=== PATIENT | female | born 1970 | race African-American/Black ===

== ENCOUNTER 2021-05-31 11:21 | Inpatient (IN) | payer OTHER ==
[2021-05-31 12:00] VITALS: BMI 41.5
[2021-05-31] MEDS ORDERED: MAGNESIUM CITRATE 300 ML BOTTLE PO PRN (13:11)
[2021-05-31] MEDS ORDERED: IBUPROFEN 400 MG TABLET (FP) PO PRN (13:11)
[2021-05-31] MEDS ORDERED: BISMUTH SUBSALICYLATE 524 MG/30 ML PO PRN (13:11)
[2021-05-31] MEDS ORDERED: ONDANSETRON *ODT* 4 MG TABLET SL PRN (13:11)
[2021-05-31] MEDS ORDERED: diazePAM 5 MG TABLET PO PRN ×2 (13:11→13:59)
[2021-05-31] MEDS ORDERED: NICOTINE POLACRILEX 2 MG GUM BUC PRN (13:11)
[2021-05-31] MEDS ORDERED: ACETAMINOPHEN 325 MG TABLET (FP) PO PRN ×2 (13:11)
[2021-05-31] MEDS ORDERED: MENTHOL/PHENOL 1 EACH UD MM PRN (13:11)
[2021-05-31] MEDS ORDERED: MAG HYDROX/AL HYDROX/SIMETH 30 ML UNIT-DOSE CUP PO PRN (13:11)
[2021-05-31] MEDS ORDERED: METHOCARBAMOL 500 MG TABLET PO PRN (13:11)
[2021-05-31] MEDS ORDERED: MAGNESIUM HYDROX 2400MG/30ML ORAL SUSPENSION 30 ML CUP PO PRN (13:11)
[2021-05-31] MEDS ORDERED: BUDESONIDE/FORMETEROL FUMARATE 160/4.5 mcg INHALER IH PRN (13:20)
[2021-05-31] MEDS: hydrOXYzine PAMOATE 25 MG CAPSULE (FP) PO SCH ×3 (15:05→22:39)
[2021-05-31] MEDS: NICOTINE 14 MG/24 HOURS TOPICAL PATCH TD SCH (15:09)
[2021-05-31] MEDS: PRENATAL VITAMINS W/ FOLIC ACID TABLET (FP) PO SCH (15:09)
[2021-05-31] MEDS: OXYBUTYNIN CHLORIDE 5 MG TABLET PO SCH ×2 (15:40→22:39)
[2021-05-31] MEDS ORDERED: diazePAM 5 MG TABLET PO SCH (17:00)
[2021-05-31 17:11] LABS: ALBUMIN 3.3 g/dl (3.4-5.0); BLOOD UREA NITROGEN 22.6 mg/dL (7-18); CALCIUM 8.8 mg/dL (8.5-10.1)
[2021-05-31 17:15] LABS: CREATININE 1.3 mg/dL (0.55-1.3)
[2021-05-31 17:16] LABS: BILIRUBIN,TOTAL 0.4 mg/dL (0.2-1); TOT PROT 7.4 g/dl (6.4-8.2)
[2021-05-31 17:17] LABS: HEMATOCRIT 49.7 % (32.4-45.2); HEMOGLOBIN 15.6 GM/dL (10.7-15.3); MCH 28.3 pg (25.7-33.7); MCHC 31.5 g/dl (32.0-36.0); MEAN CELL VOLUME 89.9 fl (80-96); MEAN PLT VOLUME 7.8 fl (7.5-11.1); PLATELET COUNT 240 10^3/uL (134-434); RBC 5.53 M/mm3 (3.60-5.2); RDW 15.4 % (11.6-15.6); WHITE BLOOD COUNT 5.9 K/mm3 (4.0-10.0)
[2021-05-31] MEDS: diazePAM 5 MG TABLET PO SCH ×2 (18:01→22:39)
[2021-05-31] MEDS ORDERED: THIAMINE HCL 100 MG TABLET (FP) PO SCH (22:00)
[2021-05-31] MEDS ORDERED: MELATONIN 5 MG TABLETS PO SCH (22:00)
[2021-06-01] MEDS ORDERED: methaDONE HCL 10 MG TABLET ONE (04:20)
[2021-06-01] MEDS ORDERED: methaDONE HCL 40 MG DISPERSABLE TABLET ONE (04:20)
[2021-06-01] MEDS: diazePAM 5 MG TABLET PO SCH (06:56)
[2021-06-01] MEDS: hydrOXYzine PAMOATE 25 MG CAPSULE (FP) PO SCH (06:56)
[2021-06-01] MEDS ORDERED: hydrOXYzine PAMOATE 25 MG CAPSULE (FP) PO PRN (08:54)
[2021-06-01] MEDS ORDERED: PATIENT'S OWN MEDICATION (NON-FORMULARY) (Losartan Potassium [Cozaar] 100 MG Tablet) PO SCH (10:00)
[2021-06-01] MEDS ORDERED: LOSARTAN POTASSIUM 50 MG TABLET PO SCH (10:00)
[2021-06-01] MEDS ORDERED: methaDONE HCL 10 MG TABLET PO SCH (10:00)
[2021-06-01] MEDS: OXYBUTYNIN CHLORIDE 5 MG TABLET PO SCH (10:55)
[2021-06-01] MEDS: PRENATAL VITAMINS W/ FOLIC ACID TABLET (FP) PO SCH (10:55)
[2021-06-01] MEDS: NICOTINE 14 MG/24 HOURS TOPICAL PATCH TD SCH (11:14)
[2021-06-01 13:03] VITALS: BP 136/93; PULSE 61; TEMP 96.9
[2021-06-02] MEDS ORDERED: diazePAM 5 MG TABLET PO SCH ×2 (06:00)
[2021-06-03] MEDS ORDERED: diazePAM 5 MG TABLET PO SCH ×2 (06:00)
[2021-06-04] MEDS ORDERED: diazePAM 5 MG TABLET PO ONE ×2 (06:00)
== END 2021-06-01 14:15 | disposition other institution (70) | DRG 773 ==
LOC: YASAS 11:21 → Y3N 12:35
PROVIDERS: ADMIT Allergy & Immunology; ATTEND Allergy & Immunology
PROC: HZ2ZZZZ Detoxification Services for Substance Abuse Treatment (ICD-10-PCS; principal; 2021-05-31)
DX: F10.230 Alcohol dependence with withdrawal, uncomplicated (principal); F11.20 Opioid dependence, uncomplicated; F14.20 Cocaine dependence, uncomplicated; F12.20 Cannabis dependence, uncomplicated; F32.9 Major depressive disorder, single episode, unspecified; I10 Essential (primary) hypertension; E66.01 Morbid (severe) obesity due to excess calories; Z68.41 Body mass index [BMI] 40.0-44.9, adult; R60.0 Localized edema; R45.89 Other symptoms and signs involving emotional state; Z99.89 Dependence on other enabling machines and devices; Z86.19 Personal history of other infectious and parasitic diseases
CPT/HCPCS: 36415; 80053; 85027; 86593; 86780; 93005; 93010; C9803; U0003; U0005

== ENCOUNTER 2021-06-01 14:27 | Inpatient (IN) | payer OTHER ==
[2021-06-01] MEDS ORDERED: MENTHOL/PHENOL 1 EACH UD MM PRN (15:48)
[2021-06-01] MEDS ORDERED: LOPERAMIDE HCL 2 MG CAPSULE PO PRN (15:48)
[2021-06-01] MEDS ORDERED: MAGNESIUM CITRATE 300 ML BOTTLE PO PRN (15:48)
[2021-06-01] MEDS ORDERED: guaiFENesin 200 MG/10 ML 10 ML UNIT-DOSE CUPS PO PRN (15:48)
[2021-06-01] MEDS ORDERED: MAGNESIUM HYDROX 2400MG/30ML ORAL SUSPENSION 30 ML CUP PO PRN (15:48)
[2021-06-01] MEDS ORDERED: MAG HYDROX/AL HYDROX/SIMETH 30 ML UNIT-DOSE CUP PO PRN (15:48)
[2021-06-01] MEDS ORDERED: P-EPHED 60MG/TRIPROLIDI 2.5MG TABLET PO PRN (15:48)
[2021-06-01] MEDS ORDERED: IBUPROFEN 400 MG TABLET (FP) PO PRN (15:48)
[2021-06-01] MEDS: BUDESONIDE/FORMETEROL FUMARATE 160/4.5 mcg INHALER IH SCH (22:01)
[2021-06-01] MEDS: OXYBUTYNIN CHLORIDE 5 MG TABLET PO SCH (22:01)
[2021-06-01] MEDS: MELATONIN 5 MG TABLETS PO SCH (22:01)
[2021-06-01] MEDS: THIAMINE HCL 100 MG TABLET (FP) PO SCH (22:04)
[2021-06-02] MEDS ORDERED: methaDONE HCL 10 MG TABLET PO ONE (09:11)
[2021-06-02] MEDS ORDERED: methaDONE HCL 40 MG DISPERSABLE TABLET ONE (10:32)
[2021-06-02] MEDS ORDERED: methaDONE HCL 10 MG TABLET ONE (10:32)
[2021-06-02] MEDS: NICOTINE 7 MG/24 HOURS TOPICAL PATCH TD SCH (11:16)
[2021-06-02] MEDS: PRENATAL VITAMINS W/ FOLIC ACID TABLET (FP) PO SCH (11:16)
[2021-06-02] MEDS: OXYBUTYNIN CHLORIDE 5 MG TABLET PO SCH ×2 (11:16→21:31)
[2021-06-02] MEDS: BUDESONIDE/FORMETEROL FUMARATE 160/4.5 mcg INHALER IH SCH ×2 (11:17→21:32)
[2021-06-02] MEDS: LOSARTAN POTASSIUM 50 MG TABLET PO SCH (11:19)
[2021-06-02] MEDS ORDERED: TUBERCULIN PPD 5 TU/0.1ML VIAL ID ONE (12:22)
[2021-06-02] MEDS: THIAMINE HCL 100 MG TABLET (FP) PO SCH (21:31)
[2021-06-02] MEDS: MELATONIN 5 MG TABLETS PO SCH (21:31)
[2021-06-03] MEDS ORDERED: methaDONE HCL 10 MG TABLET ONE (05:58)
[2021-06-03] MEDS ORDERED: methaDONE HCL 40 MG DISPERSABLE TABLET ONE (05:59)
[2021-06-03] MEDS ORDERED: methaDONE HCL 10 MG TABLET PO SCH (06:00)
[2021-06-03] MEDS: NICOTINE 7 MG/24 HOURS TOPICAL PATCH TD SCH (10:39)
[2021-06-03] MEDS: BUDESONIDE/FORMETEROL FUMARATE 160/4.5 mcg INHALER IH SCH ×2 (10:39→21:38)
[2021-06-03] MEDS: OXYBUTYNIN CHLORIDE 5 MG TABLET PO SCH ×2 (10:39→21:38)
[2021-06-03] MEDS: PRENATAL VITAMINS W/ FOLIC ACID TABLET (FP) PO SCH (10:39)
[2021-06-03] MEDS: LOSARTAN POTASSIUM 50 MG TABLET PO SCH (10:39)
[2021-06-03] MEDS: NICOTINE POLACRILEX 2 MG GUM BUC PRN (10:40)
[2021-06-03] MEDS: THIAMINE HCL 100 MG TABLET (FP) PO SCH (21:38)
[2021-06-03] MEDS: MELATONIN 5 MG TABLETS PO SCH (21:39)
[2021-06-03] MEDS: hydrOXYzine PAMOATE 25 MG CAPSULE (FP) PO PRN (21:40)
[2021-06-04] MEDS ORDERED: methaDONE HCL 10 MG TABLET ONE (03:17)
[2021-06-04] MEDS ORDERED: methaDONE HCL 40 MG DISPERSABLE TABLET ONE (03:18)
[2021-06-04] MEDS: NICOTINE 7 MG/24 HOURS TOPICAL PATCH TD SCH (10:27)
[2021-06-04] MEDS: PRENATAL VITAMINS W/ FOLIC ACID TABLET (FP) PO SCH (10:27)
[2021-06-04] MEDS: LOSARTAN POTASSIUM 50 MG TABLET PO SCH (10:28)
[2021-06-04] MEDS: OXYBUTYNIN CHLORIDE 5 MG TABLET PO SCH ×2 (10:28→21:44)
[2021-06-04] MEDS: BUDESONIDE/FORMETEROL FUMARATE 160/4.5 mcg INHALER IH SCH ×2 (10:29→21:44)
[2021-06-04] MEDS ORDERED: PT OWN MED DRAWER 7, Y5N ONE (20:31)
[2021-06-04] MEDS: THIAMINE HCL 100 MG TABLET (FP) PO SCH (21:44)
[2021-06-04] MEDS: MELATONIN 5 MG TABLETS PO SCH (21:44)
[2021-06-05] MEDS ORDERED: methaDONE HCL 10 MG TABLET ONE (04:58)
[2021-06-05] MEDS ORDERED: methaDONE HCL 40 MG DISPERSABLE TABLET ONE (04:59)
[2021-06-05] MEDS: PRENATAL VITAMINS W/ FOLIC ACID TABLET (FP) PO SCH (10:21)
[2021-06-05] MEDS: NICOTINE 7 MG/24 HOURS TOPICAL PATCH TD SCH (10:22)
[2021-06-05] MEDS: BUDESONIDE/FORMETEROL FUMARATE 160/4.5 mcg INHALER IH SCH ×2 (10:22→21:41)
[2021-06-05] MEDS: LOSARTAN POTASSIUM 50 MG TABLET PO SCH (10:22)
[2021-06-05] MEDS: OXYBUTYNIN CHLORIDE 5 MG TABLET PO SCH ×2 (10:23→21:41)
[2021-06-05] MEDS ORDERED: PT OWN MED DRAWER 7, Y5N ONE (20:00)
[2021-06-05] MEDS: MELATONIN 5 MG TABLETS PO SCH (21:41)
[2021-06-05] MEDS: THIAMINE HCL 100 MG TABLET (FP) PO SCH (21:41)
[2021-06-06] MEDS ORDERED: methaDONE HCL 40 MG DISPERSABLE TABLET ONE (03:04)
[2021-06-06] MEDS ORDERED: methaDONE HCL 10 MG TABLET ONE (03:04)
[2021-06-06] MEDS ORDERED: PT OWN MED DRAWER 7, Y5N ONE (08:27)
[2021-06-06] MEDS: LOSARTAN POTASSIUM 50 MG TABLET PO SCH (10:48)
[2021-06-06] MEDS: OXYBUTYNIN CHLORIDE 5 MG TABLET PO SCH ×2 (10:49→21:57)
[2021-06-06] MEDS: NICOTINE 7 MG/24 HOURS TOPICAL PATCH TD SCH (10:49)
[2021-06-06] MEDS: BUDESONIDE/FORMETEROL FUMARATE 160/4.5 mcg INHALER IH SCH ×2 (10:50→21:56)
[2021-06-06] MEDS: PRENATAL VITAMINS W/ FOLIC ACID TABLET (FP) PO SCH (10:50)
[2021-06-06] MEDS: DOCUSATE SODIUM 100 MG CAPSULE (FP) PO SCH (21:55)
[2021-06-06] MEDS: MELATONIN 5 MG TABLETS PO SCH (21:55)
[2021-06-06] MEDS: THIAMINE HCL 100 MG TABLET (FP) PO SCH (21:56)
[2021-06-07] MEDS ORDERED: methaDONE HCL 40 MG DISPERSABLE TABLET ONE (04:53)
[2021-06-07] MEDS ORDERED: methaDONE HCL 10 MG TABLET ONE (04:53)
[2021-06-07] MEDS: DOCUSATE SODIUM 100 MG CAPSULE (FP) PO SCH ×3 (05:57→21:17)
[2021-06-07] MEDS: PRENATAL VITAMINS W/ FOLIC ACID TABLET (FP) PO SCH (10:25)
[2021-06-07] MEDS: LOSARTAN POTASSIUM 50 MG TABLET PO SCH (10:25)
[2021-06-07] MEDS: BUDESONIDE/FORMETEROL FUMARATE 160/4.5 mcg INHALER IH SCH ×2 (10:25→21:17)
[2021-06-07] MEDS: OXYBUTYNIN CHLORIDE 5 MG TABLET PO SCH ×2 (10:26→21:17)
[2021-06-07] MEDS: NICOTINE 7 MG/24 HOURS TOPICAL PATCH TD SCH (10:26)
[2021-06-07] MEDS: ACETAMINOPHEN 325 MG TABLET (FP) PO PRN (10:39)
[2021-06-07] MEDS: THIAMINE HCL 100 MG TABLET (FP) PO SCH (21:17)
[2021-06-07] MEDS: MELATONIN 5 MG TABLETS PO SCH (21:17)
[2021-06-08] MEDS ORDERED: methaDONE HCL 10 MG TABLET ONE (04:59)
[2021-06-08] MEDS ORDERED: methaDONE HCL 40 MG DISPERSABLE TABLET ONE (04:59)
[2021-06-08] MEDS: DOCUSATE SODIUM 100 MG CAPSULE (FP) PO SCH ×3 (06:47→21:22)
[2021-06-08] MEDS: BUDESONIDE/FORMETEROL FUMARATE 160/4.5 mcg INHALER IH SCH ×2 (09:50→21:21)
[2021-06-08] MEDS: LOSARTAN POTASSIUM 50 MG TABLET PO SCH (09:50)
[2021-06-08] MEDS: PRENATAL VITAMINS W/ FOLIC ACID TABLET (FP) PO SCH (09:50)
[2021-06-08] MEDS: NICOTINE 7 MG/24 HOURS TOPICAL PATCH TD SCH (09:51)
[2021-06-08] MEDS: OXYBUTYNIN CHLORIDE 5 MG TABLET PO SCH ×2 (09:52→21:22)
[2021-06-08] MEDS ORDERED: PT OWN MED DRAWER 7, Y5N ONE ×2 (09:52→19:18)
[2021-06-08] MEDS: THIAMINE HCL 100 MG TABLET (FP) PO SCH (21:22)
[2021-06-08] MEDS: hydrOXYzine PAMOATE 25 MG CAPSULE (FP) PO PRN (21:22)
[2021-06-08] MEDS: MELATONIN 5 MG TABLETS PO SCH (21:23)
[2021-06-08] MEDS: SIMETHICONE 80 MG TAB.CHEW (FP) PO PRN (21:23)
[2021-06-09] MEDS ORDERED: methaDONE HCL 40 MG DISPERSABLE TABLET ONE (03:27)
[2021-06-09] MEDS ORDERED: methaDONE HCL 10 MG TABLET ONE (03:27)
[2021-06-09] MEDS: DOCUSATE SODIUM 100 MG CAPSULE (FP) PO SCH ×3 (06:42→21:23)
[2021-06-09] MEDS: LOSARTAN POTASSIUM 50 MG TABLET PO SCH (10:28)
[2021-06-09] MEDS: BUDESONIDE/FORMETEROL FUMARATE 160/4.5 mcg INHALER IH SCH ×2 (10:28→21:22)
[2021-06-09] MEDS: PRENATAL VITAMINS W/ FOLIC ACID TABLET (FP) PO SCH (10:28)
[2021-06-09] MEDS: OXYBUTYNIN CHLORIDE 5 MG TABLET PO SCH ×2 (10:28→21:23)
[2021-06-09] MEDS: NICOTINE 7 MG/24 HOURS TOPICAL PATCH TD SCH (10:29)
[2021-06-09] MEDS ORDERED: PT OWN MED DRAWER 7, Y5N ONE (19:27)
[2021-06-09] MEDS: ACETAMINOPHEN 325 MG TABLET (FP) PO PRN (19:51)
[2021-06-09] MEDS: hydrOXYzine PAMOATE 25 MG CAPSULE (FP) PO PRN (21:23)
[2021-06-09] MEDS: MELATONIN 5 MG TABLETS PO SCH (21:23)
[2021-06-09] MEDS: THIAMINE HCL 100 MG TABLET (FP) PO SCH (21:23)
[2021-06-10] MEDS ORDERED: methaDONE HCL 40 MG DISPERSABLE TABLET ONE (06:33)
[2021-06-10] MEDS ORDERED: methaDONE HCL 10 MG TABLET ONE (06:33)
[2021-06-10] MEDS: DOCUSATE SODIUM 100 MG CAPSULE (FP) PO SCH ×3 (06:34→21:30)
[2021-06-10] MEDS: LOSARTAN POTASSIUM 50 MG TABLET PO SCH (10:38)
[2021-06-10] MEDS: NICOTINE 7 MG/24 HOURS TOPICAL PATCH TD SCH (10:38)
[2021-06-10] MEDS: BUDESONIDE/FORMETEROL FUMARATE 160/4.5 mcg INHALER IH SCH ×2 (10:38→21:30)
[2021-06-10] MEDS: OXYBUTYNIN CHLORIDE 5 MG TABLET PO SCH ×2 (10:38→21:30)
[2021-06-10] MEDS: PRENATAL VITAMINS W/ FOLIC ACID TABLET (FP) PO SCH (10:39)
[2021-06-10] MEDS ORDERED: PT OWN MED DRAWER 7, Y5N ONE (18:36)
[2021-06-10] MEDS: THIAMINE HCL 100 MG TABLET (FP) PO SCH (21:30)
[2021-06-10] MEDS: MELATONIN 5 MG TABLETS PO SCH (21:30)
[2021-06-11] MEDS ORDERED: methaDONE HCL 10 MG TABLET ONE (03:26)
[2021-06-11] MEDS ORDERED: methaDONE HCL 40 MG DISPERSABLE TABLET ONE (03:27)
[2021-06-11] MEDS: DOCUSATE SODIUM 100 MG CAPSULE (FP) PO SCH ×3 (06:20→21:09)
[2021-06-11] MEDS: LOSARTAN POTASSIUM 50 MG TABLET PO SCH (10:40)
[2021-06-11] MEDS: NICOTINE 7 MG/24 HOURS TOPICAL PATCH TD SCH (10:40)
[2021-06-11] MEDS: PRENATAL VITAMINS W/ FOLIC ACID TABLET (FP) PO SCH (10:40)
[2021-06-11] MEDS: BUDESONIDE/FORMETEROL FUMARATE 160/4.5 mcg INHALER IH SCH ×2 (10:40→21:08)
[2021-06-11] MEDS: SIMETHICONE 80 MG TAB.CHEW (FP) PO PRN (10:41)
[2021-06-11] MEDS: OXYBUTYNIN CHLORIDE 5 MG TABLET PO SCH ×2 (10:41→21:09)
[2021-06-11] MEDS: MELATONIN 5 MG TABLETS PO SCH (21:09)
[2021-06-11] MEDS: hydrOXYzine PAMOATE 25 MG CAPSULE (FP) PO PRN (21:09)
[2021-06-11] MEDS: THIAMINE HCL 100 MG TABLET (FP) PO SCH (21:09)
[2021-06-12] MEDS ORDERED: methaDONE HCL 40 MG DISPERSABLE TABLET ONE (02:54)
[2021-06-12] MEDS ORDERED: methaDONE HCL 10 MG TABLET ONE (02:54)
[2021-06-12] MEDS: DOCUSATE SODIUM 100 MG CAPSULE (FP) PO SCH ×3 (06:11→21:14)
[2021-06-12] MEDS ORDERED: PT OWN MED DRAWER 7, Y5N ONE ×2 (09:14→20:15)
[2021-06-12] MEDS: LOSARTAN POTASSIUM 50 MG TABLET PO SCH (10:16)
[2021-06-12] MEDS: OXYBUTYNIN CHLORIDE 5 MG TABLET PO SCH ×2 (10:16→21:14)
[2021-06-12] MEDS: PRENATAL VITAMINS W/ FOLIC ACID TABLET (FP) PO SCH (10:16)
[2021-06-12] MEDS: hydrOXYzine PAMOATE 25 MG CAPSULE (FP) PO PRN ×2 (10:16→21:14)
[2021-06-12] MEDS: BUDESONIDE/FORMETEROL FUMARATE 160/4.5 mcg INHALER IH SCH ×2 (10:16→21:14)
[2021-06-12] MEDS: NICOTINE 7 MG/24 HOURS TOPICAL PATCH TD SCH (10:18)
[2021-06-12] MEDS: THIAMINE HCL 100 MG TABLET (FP) PO SCH (21:14)
[2021-06-12] MEDS: MELATONIN 5 MG TABLETS PO SCH (21:14)
[2021-06-13] MEDS ORDERED: methaDONE HCL 10 MG TABLET ONE (03:46)
[2021-06-13] MEDS ORDERED: methaDONE HCL 40 MG DISPERSABLE TABLET ONE (03:47)
[2021-06-13] MEDS: DOCUSATE SODIUM 100 MG CAPSULE (FP) PO SCH ×3 (06:02→21:34)
[2021-06-13] MEDS: NICOTINE POLACRILEX 2 MG GUM BUC PRN (06:10)
[2021-06-13] MEDS: LOSARTAN POTASSIUM 50 MG TABLET PO SCH (10:29)
[2021-06-13] MEDS: OXYBUTYNIN CHLORIDE 5 MG TABLET PO SCH ×2 (10:30→21:34)
[2021-06-13] MEDS: NICOTINE 7 MG/24 HOURS TOPICAL PATCH TD SCH (10:30)
[2021-06-13] MEDS: BUDESONIDE/FORMETEROL FUMARATE 160/4.5 mcg INHALER IH SCH ×2 (10:30→21:35)
[2021-06-13] MEDS: PRENATAL VITAMINS W/ FOLIC ACID TABLET (FP) PO SCH (10:30)
[2021-06-13] MEDS ORDERED: COVID-19 VAC,AD26(JANSSEN)/PF 0.5 ML IM ONE (13:00)
[2021-06-13] MEDS ORDERED: PT OWN MED DRAWER 7, Y5N ONE (18:58)
[2021-06-13] MEDS: THIAMINE HCL 100 MG TABLET (FP) PO SCH (21:34)
[2021-06-13] MEDS: MELATONIN 5 MG TABLETS PO SCH (21:34)
[2021-06-14] MEDS ORDERED: methaDONE HCL 10 MG TABLET ONE (03:42)
[2021-06-14] MEDS ORDERED: methaDONE HCL 40 MG DISPERSABLE TABLET ONE (03:42)
[2021-06-14] MEDS: DOCUSATE SODIUM 100 MG CAPSULE (FP) PO SCH ×3 (06:35→21:11)
[2021-06-14] MEDS: NICOTINE POLACRILEX 2 MG GUM BUC PRN (06:37)
[2021-06-14] MEDS: LOSARTAN POTASSIUM 50 MG TABLET PO SCH (09:55)
[2021-06-14] MEDS: PRENATAL VITAMINS W/ FOLIC ACID TABLET (FP) PO SCH (09:55)
[2021-06-14] MEDS: BUDESONIDE/FORMETEROL FUMARATE 160/4.5 mcg INHALER IH SCH ×2 (09:55→21:12)
[2021-06-14] MEDS: OXYBUTYNIN CHLORIDE 5 MG TABLET PO SCH ×2 (09:55→21:11)
[2021-06-14] MEDS: NICOTINE 7 MG/24 HOURS TOPICAL PATCH TD SCH (09:55)
[2021-06-14] MEDS ORDERED: ALBUTEROL SO4 HFA INHALER IH PRN (14:38)
[2021-06-14] MEDS ORDERED: PT OWN MED DRAWER 7, Y5N ONE (18:52)
[2021-06-14] MEDS: MELATONIN 5 MG TABLETS PO SCH (21:11)
[2021-06-14] MEDS: THIAMINE HCL 100 MG TABLET (FP) PO SCH (21:11)
[2021-06-15] MEDS ORDERED: methaDONE HCL 40 MG DISPERSABLE TABLET ONE (03:31)
[2021-06-15] MEDS ORDERED: methaDONE HCL 10 MG TABLET ONE (03:31)
[2021-06-15] MEDS: DOCUSATE SODIUM 100 MG CAPSULE (FP) PO SCH (06:01)
[2021-06-15 08:53] VITALS: BP 156/109; PULSE 69; TEMP 97.1
[2021-06-15] MEDS ORDERED: BENZOCAINE 20 % GEL TUBE MM PRN (09:08)
[2021-06-15] MEDS: BUDESONIDE/FORMETEROL FUMARATE 160/4.5 mcg INHALER IH SCH (09:56)
[2021-06-15] MEDS: OXYBUTYNIN CHLORIDE 5 MG TABLET PO SCH (09:56)
[2021-06-15] MEDS: PRENATAL VITAMINS W/ FOLIC ACID TABLET (FP) PO SCH (09:56)
[2021-06-15] MEDS: NICOTINE 7 MG/24 HOURS TOPICAL PATCH TD SCH (09:57)
[2021-06-15] MEDS: LOSARTAN POTASSIUM 50 MG TABLET PO SCH (10:01)
== END 2021-06-15 13:15 | disposition home or self-care (01) | DRG 772 ==
LOC: YASAS 14:27 → Y5N 14:28
PROVIDERS: ADMIT Allergy & Immunology; ATTEND Allergy & Immunology
PROC: HZ42ZZZ Group Counseling for Substance Abuse Treatment, Cognitive-Behavioral (ICD-10-PCS; principal; 2021-06-01)
DX: F11.20 Opioid dependence, uncomplicated (principal); F10.20 Alcohol dependence, uncomplicated; F14.20 Cocaine dependence, uncomplicated; F32.9 Major depressive disorder, single episode, unspecified; F41.9 Anxiety disorder, unspecified; F43.10 Post-traumatic stress disorder, unspecified; I10 Essential (primary) hypertension; J45.909 Unspecified asthma, uncomplicated; K59.00 Constipation, unspecified; R60.0 Localized edema; R29.3 Abnormal posture; E66.01 Morbid (severe) obesity due to excess calories; Z99.89 Dependence on other enabling machines and devices
CPT/HCPCS: 0031A; 91303

== ENCOUNTER 2022-01-19 13:47 | Inpatient (IN) | payer OTHER ==
[2022-01-19] MEDS ORDERED: LOPERAMIDE HCL 2 MG CAPSULE PO PRN (17:43)
[2022-01-19] MEDS ORDERED: MAGNESIUM HYDROX 2400MG/30ML ORAL SUSPENSION 30 ML CUP PO PRN (17:43)
[2022-01-19] MEDS ORDERED: MENTHOL/PHENOL 1 EACH UD MM PRN (17:43)
[2022-01-19] MEDS ORDERED: NICOTINE 10 MG CARTRIDGE (INHALER) IH PRN (17:43)
[2022-01-19] MEDS ORDERED: ONDANSETRON *ODT* 4 MG TABLET SL PRN (17:43)
[2022-01-19] MEDS ORDERED: MAGNESIUM CITRATE 300 ML BOTTLE PO PRN (17:43)
[2022-01-19] MEDS ORDERED: MAG HYDROX/AL HYDROX/SIMETH 30 ML UNIT-DOSE CUP PO PRN (17:43)
[2022-01-19] MEDS ORDERED: IBUPROFEN 400 MG TABLET (FP) PO PRN (17:43)
[2022-01-19] MEDS ORDERED: ACETAMINOPHEN 325 MG TABLET (FP) PO PRN ×2 (17:43)
[2022-01-19] MEDS ORDERED: BISMUTH SUBSALICYLATE 524 MG/30 ML PO PRN (17:43)
[2022-01-19 18:52] VITALS: BMI 32.3
[2022-01-19] MEDS: hydrOXYzine PAMOATE 25 MG CAPSULE (FP) PO SCH ×2 (20:03→22:13)
[2022-01-19] MEDS: MELATONIN 5 MG TABLETS PO SCH (22:13)
[2022-01-19] MEDS: THIAMINE HCL 100 MG TABLET (FP) PO SCH (22:13)
[2022-01-20] MEDS: hydrOXYzine PAMOATE 25 MG CAPSULE (FP) PO SCH ×5 (06:10→23:10)
[2022-01-20] MEDS ORDERED: diazePAM 5 MG TABLET PO PRN (09:35)
[2022-01-20] MEDS ORDERED: methaDONE HCL 10 MG TABLET PO SCH (09:45)
[2022-01-20] MEDS: METHOCARBAMOL 500 MG TABLET PO PRN (10:41)
[2022-01-20] MEDS: PRENATAL VITAMINS W/ FOLIC ACID TABLET (FP) PO SCH (10:41)
[2022-01-20] MEDS ORDERED: methaDONE HCL 40 MG DISPERSABLE TABLET ONE (10:43)
[2022-01-20] MEDS ORDERED: methaDONE HCL 10 MG TABLET ONE (10:43)
[2022-01-20] MEDS: diazePAM 5 MG TABLET PO SCH ×3 (10:45→23:10)
[2022-01-20 12:52] LABS: HEMATOCRIT 50.1 % (32.4-45.2); HEMOGLOBIN 16.2 GM/dL (10.7-15.3); MCH 28.4 pg (25.7-33.7); MCHC 32.4 g/dl (32.0-36.0); MEAN CELL VOLUME 87.6 fl (80-96); PLATELET COUNT 268 10^3/uL (134-434); RBC 5.72 M/mm3 (3.60-5.2); RDW 15.7 % (11.6-15.6)
[2022-01-20 13:04] LABS: ALBUMIN 3.4 g/dl (3.4-5.0); BLOOD UREA NITROGEN 15.5 mg/dL (7-18); CALCIUM 9.6 mg/dL (8.5-10.1)
[2022-01-20 13:07] LABS: CREATININE 1.1 mg/dL (0.55-1.3)
[2022-01-20 13:09] LABS: BILIRUBIN,TOTAL 0.9 mg/dL (0.2-1); TOT PROT 7.6 g/dl (6.4-8.2)
[2022-01-20] MEDS: MELATONIN 5 MG TABLETS PO SCH (23:09)
[2022-01-20] MEDS: THIAMINE HCL 100 MG TABLET (FP) PO SCH (23:10)
[2022-01-21] MEDS ORDERED: methaDONE HCL 40 MG DISPERSABLE TABLET ONE (04:55)
[2022-01-21] MEDS ORDERED: methaDONE HCL 10 MG TABLET ONE (04:55)
[2022-01-21] MEDS: diazePAM 5 MG TABLET PO SCH ×4 (07:07→22:39)
[2022-01-21] MEDS: hydrOXYzine PAMOATE 25 MG CAPSULE (FP) PO SCH ×6 (07:07→22:39)
[2022-01-21] MEDS: PRENATAL VITAMINS W/ FOLIC ACID TABLET (FP) PO SCH (11:05)
[2022-01-21] MEDS: METHOCARBAMOL 500 MG TABLET PO PRN (11:05)
[2022-01-21] MEDS: THIAMINE HCL 100 MG TABLET (FP) PO SCH (22:39)
[2022-01-21] MEDS: MELATONIN 5 MG TABLETS PO SCH (22:39)
[2022-01-22] MEDS ORDERED: methaDONE HCL 40 MG DISPERSABLE TABLET ONE (04:52)
[2022-01-22] MEDS ORDERED: methaDONE HCL 10 MG TABLET ONE (04:52)
[2022-01-22] MEDS: hydrOXYzine PAMOATE 25 MG CAPSULE (FP) PO SCH ×5 (07:21→22:18)
[2022-01-22] MEDS: diazePAM 5 MG TABLET PO SCH ×3 (07:22→22:19)
[2022-01-22] MEDS: METHOCARBAMOL 500 MG TABLET PO PRN (09:11)
[2022-01-22] MEDS: PRENATAL VITAMINS W/ FOLIC ACID TABLET (FP) PO SCH (09:11)
[2022-01-22] MEDS: THIAMINE HCL 100 MG TABLET (FP) PO SCH (22:18)
[2022-01-22] MEDS: MELATONIN 5 MG TABLETS PO SCH (22:18)
[2022-01-23] MEDS ORDERED: methaDONE HCL 10 MG TABLET ONE (04:50)
[2022-01-23] MEDS ORDERED: methaDONE HCL 40 MG DISPERSABLE TABLET ONE (04:51)
[2022-01-23] MEDS: hydrOXYzine PAMOATE 25 MG CAPSULE (FP) PO SCH ×5 (06:57→23:09)
[2022-01-23] MEDS: diazePAM 5 MG TABLET PO SCH ×3 (06:57→18:25)
[2022-01-23] MEDS: PRENATAL VITAMINS W/ FOLIC ACID TABLET (FP) PO SCH (10:24)
[2022-01-23] MEDS: THIAMINE HCL 100 MG TABLET (FP) PO SCH (23:09)
[2022-01-23] MEDS: MELATONIN 5 MG TABLETS PO SCH (23:09)
[2022-01-24 00:08] LABS: SARS-CoV-2 NAA Not Detected (Not Detected)
[2022-01-24] MEDS ORDERED: methaDONE HCL 40 MG DISPERSABLE TABLET ONE (03:44)
[2022-01-24] MEDS ORDERED: methaDONE HCL 10 MG TABLET ONE (03:44)
[2022-01-24] MEDS ORDERED: diazePAM 5 MG TABLET PO ONE (06:00)
[2022-01-24] MEDS: hydrOXYzine PAMOATE 25 MG CAPSULE (FP) PO SCH ×2 (06:46→10:41)
[2022-01-24] MEDS: PRENATAL VITAMINS W/ FOLIC ACID TABLET (FP) PO SCH (10:41)
[2022-01-24] MEDS: METHOCARBAMOL 500 MG TABLET PO PRN (10:41)
[2022-01-24 13:01] VITALS: BP 132/77; PULSE 65; TEMP 97.1
== END 2022-01-24 13:29 | disposition other institution (70) | DRG 773 ==
LOC: YASAS 13:47 → Y6N 19:11
PROVIDERS: ADMIT Allergy & Immunology; ATTEND Allergy & Immunology
PROC: HZ2ZZZZ Detoxification Services for Substance Abuse Treatment (ICD-10-PCS; principal; 2022-01-19)
DX: F10.230 Alcohol dependence with withdrawal, uncomplicated (principal); F10.220 Alcohol dependence with intoxication, uncomplicated; F11.20 Opioid dependence, uncomplicated; I10 Essential (primary) hypertension; J45.909 Unspecified asthma, uncomplicated; M19.90 Unspecified osteoarthritis, unspecified site; M54.59 Other low back pain; G89.29 Other chronic pain; R26.2 Difficulty in walking, not elsewhere classified; Z99.89 Dependence on other enabling machines and devices; Z86.19 Personal history of other infectious and parasitic diseases; Z90.710 Acquired absence of both cervix and uterus
CPT/HCPCS: 36415; 80053; 85027; 86593; 86780; C9803; U0003; U0005

== ENCOUNTER 2022-01-24 14:41 | Inpatient (IN) | payer OTHER ==
[~2022-01-24 14:41] MED LIST: ACETAMINOPHEN 325 MG TABLET (FP) PO PRN; IBUPROFEN 400 MG TABLET (FP) PO PRN; LOPERAMIDE HCL 2 MG CAPSULE PO PRN; MAG HYDROX/AL HYDROX/SIMETH 30 ML UNIT-DOSE CUP PO PRN; MAGNESIUM CITRATE 300 ML BOTTLE PO PRN; MAGNESIUM HYDROX 2400MG/30ML ORAL SUSPENSION 30 ML CUP PO PRN; MELATONIN 5 MG TABLETS PO SCH; NICOTINE 10 MG CARTRIDGE (INHALER) IH PRN; NICOTINE POLACRILEX 2 MG GUM BUC PRN; P-EPHED 60MG/TRIPROLIDI 2.5MG TABLET PO PRN; PRENATAL VITAMINS W/ FOLIC ACID TABLET (FP) PO SCH; THIAMINE HCL 100 MG TABLET (FP) PO SCH; guaiFENesin 200 MG/10 ML 10 ML UNIT-DOSE CUPS PO PRN; hydrOXYzine PAMOATE 25 MG CAPSULE (FP) PO PRN; hydrOXYzine PAMOATE 25 MG CAPSULE (FP) PO SCH; methaDONE HCL 10 MG TABLET PO SCH
[2022-01-24] MEDS: THIAMINE HCL 100 MG TABLET (FP) PO SCH (21:43)
[2022-01-24] MEDS: MELATONIN 5 MG TABLETS PO SCH (21:43)
[2022-01-24] MEDS: hydrOXYzine PAMOATE 25 MG CAPSULE (FP) PO PRN (21:44)
[2022-01-25] MEDS ORDERED: methaDONE HCL 10 MG TABLET PO SCH (06:00)
[2022-01-25] MEDS ORDERED: methaDONE HCL 10 MG TABLET ONE (06:46)
[2022-01-25] MEDS ORDERED: methaDONE HCL 40 MG DISPERSABLE TABLET ONE (06:46)
[2022-01-25] MEDS: PRENATAL VITAMINS W/ FOLIC ACID TABLET (FP) PO SCH (10:44)
[2022-01-25 10:45] LABS: HEMATOCRIT 44.1 % (32.4-45.2); HEMOGLOBIN 14.5 GM/dL (10.7-15.3); MCH 28.7 pg (25.7-33.7); MCHC 32.7 g/dl (32.0-36.0); MEAN CELL VOLUME 87.5 fl (80-96); MEAN PLT VOLUME 7.5 fl (7.5-11.1); PLATELET COUNT 241 10^3/uL (134-434); RBC 5.04 M/mm3 (3.60-5.2); WHITE BLOOD COUNT 5.6 K/mm3 (4.0-10.0)
[2022-01-25] MEDS: THIAMINE HCL 100 MG TABLET (FP) PO SCH (21:33)
[2022-01-25] MEDS: MELATONIN 5 MG TABLETS PO SCH (21:33)
[2022-01-25] MEDS: BACITRACIN 0.9 GM PACKET TP SCH (21:34)
[2022-01-26] MEDS ORDERED: methaDONE HCL 40 MG DISPERSABLE TABLET ONE (02:50)
[2022-01-26] MEDS ORDERED: methaDONE HCL 10 MG TABLET ONE (02:50)
[2022-01-26] MEDS: PRENATAL VITAMINS W/ FOLIC ACID TABLET (FP) PO SCH (10:41)
[2022-01-26] MEDS: BACITRACIN 0.9 GM PACKET TP SCH ×2 (10:41→21:32)
[2022-01-26] MEDS: NICOTINE 10 MG CARTRIDGE (INHALER) IH PRN (20:43)
[2022-01-26] MEDS: hydrOXYzine PAMOATE 25 MG CAPSULE (FP) PO PRN (21:32)
[2022-01-26] MEDS: THIAMINE HCL 100 MG TABLET (FP) PO SCH (21:32)
[2022-01-26] MEDS: MELATONIN 5 MG TABLETS PO SCH (21:32)
[2022-01-26] MEDS: HYDROCORTISONE 1% TOPICAL CREAM 30 GM TUBE TP SCH (21:33)
[2022-01-27] MEDS ORDERED: methaDONE HCL 40 MG DISPERSABLE TABLET ONE (02:46)
[2022-01-27] MEDS ORDERED: methaDONE HCL 10 MG TABLET ONE (02:46)
[2022-01-27] MEDS: HYDROCORTISONE 1% TOPICAL CREAM 30 GM TUBE TP SCH ×2 (10:16→22:18)
[2022-01-27] MEDS: PRENATAL VITAMINS W/ FOLIC ACID TABLET (FP) PO SCH (10:16)
[2022-01-27] MEDS: BACITRACIN 0.9 GM PACKET TP SCH ×2 (10:18→22:17)
[2022-01-27] MEDS: MAG HYDROX/AL HYDROX/SIMETH 30 ML UNIT-DOSE CUP PO PRN (19:24)
[2022-01-27] MEDS: MELATONIN 5 MG TABLETS PO SCH (22:17)
[2022-01-27] MEDS: THIAMINE HCL 100 MG TABLET (FP) PO SCH (22:18)
[2022-01-28] MEDS ORDERED: methaDONE HCL 40 MG DISPERSABLE TABLET ONE (04:05)
[2022-01-28] MEDS ORDERED: methaDONE HCL 10 MG TABLET ONE (04:05)
[2022-01-28] MEDS ORDERED: methaDONE HCL 40 MG DISPERSABLE TABLET PO SCH (10:00)
[2022-01-28] MEDS: HYDROCORTISONE 1% TOPICAL CREAM 30 GM TUBE TP SCH ×2 (10:57→22:00)
[2022-01-28] MEDS: PRENATAL VITAMINS W/ FOLIC ACID TABLET (FP) PO SCH (10:57)
[2022-01-28] MEDS: methaDONE 40 MG, methaDONE 20 MG PO SCH ×2 (10:57→10:59)
[2022-01-28] MEDS: BACITRACIN 0.9 GM PACKET TP SCH ×2 (10:59→21:59)
[2022-01-28 13:07] LABS: SARS-CoV-2 NAA Not Detected (Not Detected)
[2022-01-28] MEDS: NICOTINE 10 MG CARTRIDGE (INHALER) IH PRN (14:08)
[2022-01-28] MEDS: THIAMINE HCL 100 MG TABLET (FP) PO SCH (21:59)
[2022-01-28] MEDS: hydrOXYzine PAMOATE 25 MG CAPSULE (FP) PO PRN (21:59)
[2022-01-28] MEDS: MELATONIN 5 MG TABLETS PO SCH (22:00)
[2022-01-29] MEDS ORDERED: methaDONE HCL 40 MG DISPERSABLE TABLET ONE (04:54)
[2022-01-29] MEDS ORDERED: methaDONE HCL 10 MG TABLET ONE (04:54)
[2022-01-29] MEDS: methaDONE 40 MG, methaDONE 20 MG PO SCH ×2 (08:54→10:28)
[2022-01-29] MEDS: PRENATAL VITAMINS W/ FOLIC ACID TABLET (FP) PO SCH (10:26)
[2022-01-29] MEDS: BACITRACIN 0.9 GM PACKET TP SCH ×2 (10:27→22:00)
[2022-01-29] MEDS: HYDROCORTISONE 1% TOPICAL CREAM 30 GM TUBE TP SCH ×2 (10:30→22:00)
[2022-01-29] MEDS: MELATONIN 5 MG TABLETS PO SCH (22:00)
[2022-01-29] MEDS: THIAMINE HCL 100 MG TABLET (FP) PO SCH (22:00)
[2022-01-30] MEDS: IBUPROFEN 400 MG TABLET (FP) PO PRN (06:41)
[2022-01-30] MEDS ORDERED: methaDONE HCL 40 MG DISPERSABLE TABLET ONE (09:04)
[2022-01-30] MEDS ORDERED: methaDONE HCL 10 MG TABLET ONE (09:04)
[2022-01-30] MEDS: BACITRACIN 0.9 GM PACKET TP SCH ×2 (11:04→21:56)
[2022-01-30] MEDS: methaDONE 40 MG, methaDONE 20 MG PO SCH (11:05)
[2022-01-30] MEDS: ACETAMINOPHEN 325 MG TABLET (FP) PO PRN ×2 (11:06→21:56)
[2022-01-30] MEDS: HYDROCORTISONE 1% TOPICAL CREAM 30 GM TUBE TP SCH ×2 (11:08→21:58)
[2022-01-30] MEDS: PRENATAL VITAMINS W/ FOLIC ACID TABLET (FP) PO SCH (11:09)
[2022-01-30] MEDS: MAG HYDROX/AL HYDROX/SIMETH 30 ML UNIT-DOSE CUP PO PRN (11:11)
[2022-01-30] MEDS: METHYL SALICYLATE/MENTHOL OINT 30 GM TUBE TP SCH ×2 (15:35→21:58)
[2022-01-30] MEDS: THIAMINE HCL 100 MG TABLET (FP) PO SCH (21:56)
[2022-01-30] MEDS: hydrOXYzine PAMOATE 25 MG CAPSULE (FP) PO PRN (21:57)
[2022-01-30] MEDS: NICOTINE 10 MG CARTRIDGE (INHALER) IH PRN (21:59)
[2022-01-30] MEDS: MELATONIN 5 MG TABLETS PO SCH (21:59)
[2022-01-31] MEDS ORDERED: methaDONE HCL 40 MG DISPERSABLE TABLET ONE (10:40)
[2022-01-31] MEDS ORDERED: methaDONE HCL 10 MG TABLET ONE (10:40)
[2022-01-31] MEDS: PRENATAL VITAMINS W/ FOLIC ACID TABLET (FP) PO SCH (10:43)
[2022-01-31] MEDS: BACITRACIN 0.9 GM PACKET TP SCH ×2 (10:44→21:43)
[2022-01-31] MEDS: methaDONE 40 MG, methaDONE 20 MG PO SCH (10:44)
[2022-01-31] MEDS: METHYL SALICYLATE/MENTHOL OINT 30 GM TUBE TP SCH ×2 (11:16→21:43)
[2022-01-31] MEDS: HYDROCORTISONE 1% TOPICAL CREAM 30 GM TUBE TP SCH ×2 (11:16→21:44)
[2022-01-31] MEDS: THIAMINE HCL 100 MG TABLET (FP) PO SCH (21:43)
[2022-01-31] MEDS: hydrOXYzine PAMOATE 25 MG CAPSULE (FP) PO PRN (21:43)
[2022-01-31] MEDS: MELATONIN 5 MG TABLETS PO SCH (21:44)
[2022-01-31] MEDS: IBUPROFEN 400 MG TABLET (FP) PO PRN (21:44)
[2022-02-01] MEDS ORDERED: methaDONE HCL 10 MG TABLET ONE (10:20)
[2022-02-01] MEDS ORDERED: methaDONE HCL 40 MG DISPERSABLE TABLET ONE (10:20)
[2022-02-01] MEDS: methaDONE 40 MG, methaDONE 20 MG PO SCH (11:29)
[2022-02-01] MEDS: PRENATAL VITAMINS W/ FOLIC ACID TABLET (FP) PO SCH (11:29)
[2022-02-01] MEDS: METHYL SALICYLATE/MENTHOL OINT 30 GM TUBE TP SCH ×2 (11:31→21:39)
[2022-02-01] MEDS: BACITRACIN 0.9 GM PACKET TP SCH ×2 (11:31→21:38)
[2022-02-01] MEDS: HYDROCORTISONE 1% TOPICAL CREAM 30 GM TUBE TP SCH ×2 (11:31→21:39)
[2022-02-01] MEDS: THIAMINE HCL 100 MG TABLET (FP) PO SCH (21:39)
[2022-02-01] MEDS: MELATONIN 5 MG TABLETS PO SCH (21:39)
[2022-02-02] MEDS: IBUPROFEN 400 MG TABLET (FP) PO PRN (06:30)
[2022-02-02] MEDS ORDERED: methaDONE HCL 10 MG TABLET ONE (09:14)
[2022-02-02] MEDS ORDERED: methaDONE HCL 40 MG DISPERSABLE TABLET ONE (09:15)
[2022-02-02] MEDS: BACITRACIN 0.9 GM PACKET TP SCH ×2 (10:28→21:27)
[2022-02-02] MEDS: methaDONE 40 MG, methaDONE 20 MG PO SCH (10:30)
[2022-02-02] MEDS: METHYL SALICYLATE/MENTHOL OINT 30 GM TUBE TP SCH ×2 (10:31→21:27)
[2022-02-02] MEDS: PRENATAL VITAMINS W/ FOLIC ACID TABLET (FP) PO SCH (10:31)
[2022-02-02] MEDS: HYDROCORTISONE 1% TOPICAL CREAM 30 GM TUBE TP SCH (10:31)
[2022-02-02] MEDS: NICOTINE 10 MG CARTRIDGE (INHALER) IH PRN (10:39)
[2022-02-02] MEDS: FUROSEMIDE 20 MG TABLET (FP) PO SCH (12:06)
[2022-02-02] MEDS: LOSARTAN POTASSIUM 50 MG TABLET PO SCH (12:32)
[2022-02-02] MEDS: hydrOXYzine PAMOATE 25 MG CAPSULE (FP) PO PRN (21:27)
[2022-02-02] MEDS: THIAMINE HCL 100 MG TABLET (FP) PO SCH (21:27)
[2022-02-02] MEDS: MELATONIN 5 MG TABLETS PO SCH (21:27)
[2022-02-03] MEDS: hydrOXYzine PAMOATE 25 MG CAPSULE (FP) PO PRN (06:55)
[2022-02-03] MEDS: IBUPROFEN 400 MG TABLET (FP) PO PRN (06:56)
[2022-02-03] MEDS ORDERED: methaDONE HCL 40 MG DISPERSABLE TABLET ONE (09:12)
[2022-02-03] MEDS ORDERED: methaDONE HCL 10 MG TABLET ONE (09:12)
[2022-02-03] MEDS: METHYL SALICYLATE/MENTHOL OINT 30 GM TUBE TP SCH ×2 (11:08→21:57)
[2022-02-03] MEDS: methaDONE 40 MG, methaDONE 20 MG PO SCH (11:12)
[2022-02-03] MEDS: LOSARTAN POTASSIUM 50 MG TABLET PO SCH (11:13)
[2022-02-03] MEDS: FUROSEMIDE 20 MG TABLET (FP) PO SCH (11:13)
[2022-02-03] MEDS: ACETAMINOPHEN 325 MG TABLET (FP) PO PRN (11:14)
[2022-02-03] MEDS: PRENATAL VITAMINS W/ FOLIC ACID TABLET (FP) PO SCH (11:14)
[2022-02-03] MEDS: BACITRACIN 0.9 GM PACKET TP SCH ×2 (11:16→21:57)
[2022-02-03] MEDS: THIAMINE HCL 100 MG TABLET (FP) PO SCH (21:57)
[2022-02-03] MEDS: MELATONIN 5 MG TABLETS PO SCH (21:58)
[2022-02-04] MEDS: IBUPROFEN 400 MG TABLET (FP) PO PRN (06:29)
[2022-02-04] MEDS ORDERED: methaDONE HCL 40 MG DISPERSABLE TABLET ONE (08:47)
[2022-02-04] MEDS ORDERED: methaDONE HCL 10 MG TABLET ONE (08:47)
[2022-02-04] MEDS: LOSARTAN POTASSIUM 50 MG TABLET PO SCH (10:34)
[2022-02-04] MEDS: FUROSEMIDE 20 MG TABLET (FP) PO SCH (10:34)
[2022-02-04] MEDS: BACITRACIN 0.9 GM PACKET TP SCH ×2 (10:34→22:02)
[2022-02-04] MEDS: methaDONE 40 MG, methaDONE 20 MG PO SCH (10:34)
[2022-02-04] MEDS: PRENATAL VITAMINS W/ FOLIC ACID TABLET (FP) PO SCH (10:34)
[2022-02-04] MEDS: ACETAMINOPHEN 325 MG TABLET (FP) PO PRN (10:37)
[2022-02-04] MEDS: METHYL SALICYLATE/MENTHOL OINT 30 GM TUBE TP SCH ×2 (10:40→22:02)
[2022-02-04] MEDS: MELATONIN 5 MG TABLETS PO SCH (22:02)
[2022-02-04] MEDS: THIAMINE HCL 100 MG TABLET (FP) PO SCH (22:02)
[2022-02-04] MEDS: hydrOXYzine PAMOATE 25 MG CAPSULE (FP) PO PRN (22:02)
[2022-02-05] MEDS: IBUPROFEN 400 MG TABLET (FP) PO PRN ×2 (07:03→21:55)
[2022-02-05] MEDS ORDERED: methaDONE HCL 10 MG TABLET ONE (09:06)
[2022-02-05] MEDS ORDERED: methaDONE HCL 40 MG DISPERSABLE TABLET ONE (09:07)
[2022-02-05] MEDS: FUROSEMIDE 20 MG TABLET (FP) PO SCH (11:20)
[2022-02-05] MEDS: PRENATAL VITAMINS W/ FOLIC ACID TABLET (FP) PO SCH (11:21)
[2022-02-05] MEDS: LOSARTAN POTASSIUM 50 MG TABLET PO SCH (11:21)
[2022-02-05] MEDS: METHYL SALICYLATE/MENTHOL OINT 30 GM TUBE TP SCH ×2 (11:21→22:01)
[2022-02-05] MEDS: BACITRACIN 0.9 GM PACKET TP SCH ×2 (11:21→21:55)
[2022-02-05] MEDS: methaDONE 40 MG, methaDONE 20 MG PO SCH (12:40)
[2022-02-05] MEDS: THIAMINE HCL 100 MG TABLET (FP) PO SCH (21:55)
[2022-02-05] MEDS: MELATONIN 5 MG TABLETS PO SCH (21:55)
[2022-02-05] MEDS: SIMETHICONE 80 MG TAB.CHEW (FP) PO PRN (21:56)
[2022-02-05] MEDS: NICOTINE 10 MG CARTRIDGE (INHALER) IH PRN (22:04)
[2022-02-06] MEDS ORDERED: methaDONE HCL 40 MG DISPERSABLE TABLET ONE (08:42)
[2022-02-06] MEDS ORDERED: methaDONE HCL 10 MG TABLET ONE (08:42)
[2022-02-06] MEDS: BACITRACIN 0.9 GM PACKET TP SCH ×2 (10:45→21:48)
[2022-02-06] MEDS: LOSARTAN POTASSIUM 50 MG TABLET PO SCH (10:45)
[2022-02-06] MEDS: METHYL SALICYLATE/MENTHOL OINT 30 GM TUBE TP SCH ×2 (10:46→23:47)
[2022-02-06] MEDS: PRENATAL VITAMINS W/ FOLIC ACID TABLET (FP) PO SCH (10:46)
[2022-02-06] MEDS: methaDONE 40 MG, methaDONE 20 MG PO SCH (10:46)
[2022-02-06] MEDS: FUROSEMIDE 20 MG TABLET (FP) PO SCH (10:47)
[2022-02-06] MEDS: IBUPROFEN 400 MG TABLET (FP) PO PRN ×2 (14:01→21:48)
[2022-02-06] MEDS: THIAMINE HCL 100 MG TABLET (FP) PO SCH (21:48)
[2022-02-06] MEDS: MELATONIN 5 MG TABLETS PO SCH (21:48)
[2022-02-07] MEDS: ACETAMINOPHEN 325 MG TABLET (FP) PO PRN ×2 (06:32→21:40)
[2022-02-07] MEDS ORDERED: methaDONE HCL 10 MG TABLET ONE (08:12)
[2022-02-07] MEDS ORDERED: methaDONE HCL 40 MG DISPERSABLE TABLET ONE (08:12)
[2022-02-07] MEDS: PRENATAL VITAMINS W/ FOLIC ACID TABLET (FP) PO SCH (11:04)
[2022-02-07] MEDS: methaDONE 40 MG, methaDONE 20 MG PO SCH (11:05)
[2022-02-07] MEDS: FUROSEMIDE 20 MG TABLET (FP) PO SCH (11:05)
[2022-02-07] MEDS: BACITRACIN 0.9 GM PACKET TP SCH ×2 (11:07→21:37)
[2022-02-07] MEDS: LIDOCAINE 5% TOPICAL PATCH TP SCH (11:10)
[2022-02-07] MEDS: LOSARTAN POTASSIUM 50 MG TABLET PO SCH (11:10)
[2022-02-07] MEDS: LIDOCAINE PATCH REMOVAL MC SCH (21:37)
[2022-02-07] MEDS: MELATONIN 5 MG TABLETS PO SCH (21:37)
[2022-02-07] MEDS: MAG HYDROX/AL HYDROX/SIMETH 30 ML UNIT-DOSE CUP PO PRN (21:37)
[2022-02-07] MEDS: THIAMINE HCL 100 MG TABLET (FP) PO SCH (21:37)
[2022-02-07] MEDS: METHYL SALICYLATE/MENTHOL OINT 30 GM TUBE TP SCH (21:38)
[2022-02-08] MEDS ORDERED: methaDONE HCL 10 MG TABLET ONE (09:12)
[2022-02-08] MEDS ORDERED: methaDONE HCL 40 MG DISPERSABLE TABLET ONE (09:12)
[2022-02-08] MEDS: LOSARTAN POTASSIUM 50 MG TABLET PO SCH (11:04)
[2022-02-08] MEDS: PRENATAL VITAMINS W/ FOLIC ACID TABLET (FP) PO SCH (11:04)
[2022-02-08] MEDS: BACITRACIN 0.9 GM PACKET TP SCH ×2 (11:04→21:43)
[2022-02-08] MEDS: FUROSEMIDE 20 MG TABLET (FP) PO SCH (11:04)
[2022-02-08] MEDS: LIDOCAINE 5% TOPICAL PATCH TP SCH (11:05)
[2022-02-08] MEDS: methaDONE 40 MG, methaDONE 20 MG PO SCH (11:05)
[2022-02-08] MEDS: IBUPROFEN 400 MG TABLET (FP) PO PRN (21:43)
[2022-02-08] MEDS: THIAMINE HCL 100 MG TABLET (FP) PO SCH (21:43)
[2022-02-08] MEDS: SIMETHICONE 80 MG TAB.CHEW (FP) PO PRN (21:43)
[2022-02-08] MEDS: MELATONIN 5 MG TABLETS PO SCH (21:43)
[2022-02-08] MEDS: COLLOIDAL OATMEAL 1 BAR EACH TP PRN (21:43)
[2022-02-08] MEDS: METHYL SALICYLATE/MENTHOL OINT 30 GM TUBE TP SCH (21:50)
[2022-02-08] MEDS: LIDOCAINE PATCH REMOVAL MC SCH (21:50)
[2022-02-09] MEDS ORDERED: methaDONE HCL 10 MG TABLET ONE (08:45)
[2022-02-09] MEDS ORDERED: methaDONE HCL 40 MG DISPERSABLE TABLET ONE (08:45)
[2022-02-09] MEDS ORDERED: ALBUTEROL SO4 HFA INHALER IH PRN (09:48)
[2022-02-09] MEDS: PRENATAL VITAMINS W/ FOLIC ACID TABLET (FP) PO SCH (10:30)
[2022-02-09] MEDS: methaDONE 40 MG, methaDONE 20 MG PO SCH (10:30)
[2022-02-09] MEDS: LIDOCAINE 5% TOPICAL PATCH TP SCH (10:31)
[2022-02-09] MEDS: FUROSEMIDE 20 MG TABLET (FP) PO SCH (10:31)
[2022-02-09] MEDS: LOSARTAN POTASSIUM 50 MG TABLET PO SCH (10:31)
[2022-02-09] MEDS: BACITRACIN 0.9 GM PACKET TP SCH ×2 (10:32→21:59)
[2022-02-09] MEDS: THIAMINE HCL 100 MG TABLET (FP) PO SCH (21:59)
[2022-02-09] MEDS: METHYL SALICYLATE/MENTHOL OINT 30 GM TUBE TP SCH (21:59)
[2022-02-09] MEDS: MELATONIN 5 MG TABLETS PO SCH (22:00)
[2022-02-09] MEDS: IBUPROFEN 400 MG TABLET (FP) PO PRN (22:05)
[2022-02-09] MEDS: LIDOCAINE PATCH REMOVAL MC SCH (22:31)
[2022-02-10] MEDS: IBUPROFEN 400 MG TABLET (FP) PO PRN (06:17)
[2022-02-10] MEDS ORDERED: methaDONE HCL 10 MG TABLET ONE (09:05)
[2022-02-10] MEDS ORDERED: methaDONE HCL 40 MG DISPERSABLE TABLET ONE (09:05)
[2022-02-10] MEDS: LOSARTAN POTASSIUM 50 MG TABLET PO SCH (09:08)
[2022-02-10] MEDS: BACITRACIN 0.9 GM PACKET TP SCH ×2 (09:08→22:23)
[2022-02-10] MEDS: methaDONE 40 MG, methaDONE 20 MG PO SCH (09:08)
[2022-02-10] MEDS: LIDOCAINE 5% TOPICAL PATCH TP SCH (09:08)
[2022-02-10] MEDS: PRENATAL VITAMINS W/ FOLIC ACID TABLET (FP) PO SCH (09:09)
[2022-02-10] MEDS: FUROSEMIDE 20 MG TABLET (FP) PO SCH (09:10)
[2022-02-10] MEDS: ACETAMINOPHEN 325 MG TABLET (FP) PO PRN (09:13)
[2022-02-10] MEDS: THIAMINE HCL 100 MG TABLET (FP) PO SCH (22:23)
[2022-02-10] MEDS: IBUPROFEN 600 MG TABLET (FP) PO PRN (22:23)
[2022-02-10] MEDS: LIDOCAINE PATCH REMOVAL MC SCH (22:24)
[2022-02-10] MEDS: MELATONIN 5 MG TABLETS PO SCH (22:26)
[2022-02-10] MEDS: METHYL SALICYLATE/MENTHOL OINT 30 GM TUBE TP SCH (22:26)
[2022-02-11] MEDS: DICLOFENAC SODIUM 75 MG TABLET.DR PO SCH ×3 (00:55→22:14)
[2022-02-11] MEDS: P-EPHED 60MG/TRIPROLIDI 2.5MG TABLET PO SCH ×3 (06:37→22:13)
[2022-02-11] MEDS ORDERED: methaDONE HCL 40 MG DISPERSABLE TABLET ONE (09:23)
[2022-02-11] MEDS ORDERED: methaDONE HCL 10 MG TABLET ONE (09:23)
[2022-02-11] MEDS: methaDONE 40 MG, methaDONE 20 MG PO SCH (11:32)
[2022-02-11] MEDS: LOSARTAN POTASSIUM 50 MG TABLET PO SCH (11:33)
[2022-02-11] MEDS: PRENATAL VITAMINS W/ FOLIC ACID TABLET (FP) PO SCH (11:33)
[2022-02-11] MEDS: BACITRACIN 0.9 GM PACKET TP SCH ×2 (11:34→22:13)
[2022-02-11] MEDS: FUROSEMIDE 20 MG TABLET (FP) PO SCH (11:36)
[2022-02-11] MEDS: MENTHOL/PHENOL 1 EACH UD MM PRN (11:36)
[2022-02-11] MEDS: LIDOCAINE 5% TOPICAL PATCH TP SCH (11:37)
[2022-02-11] MEDS: LIDOCAINE PATCH REMOVAL MC SCH (22:13)
[2022-02-11] MEDS: MELATONIN 5 MG TABLETS PO SCH (22:13)
[2022-02-11] MEDS: THIAMINE HCL 100 MG TABLET (FP) PO SCH (22:13)
[2022-02-11] MEDS: METHYL SALICYLATE/MENTHOL OINT 30 GM TUBE TP SCH (22:14)
[2022-02-12] MEDS: P-EPHED 60MG/TRIPROLIDI 2.5MG TABLET PO SCH ×3 (07:43→22:22)
[2022-02-12] MEDS ORDERED: methaDONE HCL 40 MG DISPERSABLE TABLET ONE (09:12)
[2022-02-12] MEDS ORDERED: methaDONE HCL 10 MG TABLET ONE (09:12)
[2022-02-12] MEDS: methaDONE 40 MG, methaDONE 20 MG PO SCH (10:48)
[2022-02-12] MEDS: BACITRACIN 0.9 GM PACKET TP SCH ×2 (10:48→22:23)
[2022-02-12] MEDS: PRENATAL VITAMINS W/ FOLIC ACID TABLET (FP) PO SCH (10:49)
[2022-02-12] MEDS: FUROSEMIDE 20 MG TABLET (FP) PO SCH (10:49)
[2022-02-12] MEDS: LOSARTAN POTASSIUM 50 MG TABLET PO SCH (10:49)
[2022-02-12] MEDS: LIDOCAINE 5% TOPICAL PATCH TP SCH (10:50)
[2022-02-12] MEDS: DICLOFENAC SODIUM 75 MG TABLET.DR PO SCH ×2 (10:51→22:24)
[2022-02-12] MEDS: LIDOCAINE PATCH REMOVAL MC SCH (22:23)
[2022-02-12] MEDS: THIAMINE HCL 100 MG TABLET (FP) PO SCH (22:23)
[2022-02-12] MEDS: MELATONIN 5 MG TABLETS PO SCH (22:23)
[2022-02-12] MEDS: METHYL SALICYLATE/MENTHOL OINT 30 GM TUBE TP SCH (22:23)
[2022-02-12] MEDS: MENTHOL/PHENOL 1 EACH UD MM PRN (22:31)
[2022-02-13] MEDS ORDERED: methaDONE HCL 40 MG DISPERSABLE TABLET ONE (09:28)
[2022-02-13] MEDS ORDERED: methaDONE HCL 10 MG TABLET ONE (09:28)
[2022-02-13] MEDS: PRENATAL VITAMINS W/ FOLIC ACID TABLET (FP) PO SCH (10:49)
[2022-02-13] MEDS: methaDONE 40 MG, methaDONE 20 MG PO SCH (10:51)
[2022-02-13] MEDS: ACETAMINOPHEN 325 MG TABLET (FP) PO PRN (10:52)
[2022-02-13] MEDS: FUROSEMIDE 20 MG TABLET (FP) PO SCH (10:54)
[2022-02-13] MEDS: LOSARTAN POTASSIUM 50 MG TABLET PO SCH (10:54)
[2022-02-13] MEDS: BACITRACIN 0.9 GM PACKET TP SCH ×2 (10:54→21:49)
[2022-02-13] MEDS: LIDOCAINE 5% TOPICAL PATCH TP SCH (10:55)
[2022-02-13] MEDS: DICLOFENAC SODIUM 75 MG TABLET.DR PO SCH (10:55)
[2022-02-13] MEDS: THIAMINE HCL 100 MG TABLET (FP) PO SCH (21:49)
[2022-02-13] MEDS: MELATONIN 5 MG TABLETS PO SCH (21:49)
[2022-02-13] MEDS: LIDOCAINE PATCH REMOVAL MC SCH (21:49)
[2022-02-13] MEDS: METHYL SALICYLATE/MENTHOL OINT 30 GM TUBE TP SCH (21:55)
[2022-02-13] MEDS: IBUPROFEN 600 MG TABLET (FP) PO PRN (22:09)
[2022-02-14] MEDS: MENTHOL/PHENOL 1 EACH UD MM PRN ×2 (06:32→10:45)
[2022-02-14] MEDS ORDERED: methaDONE HCL 10 MG TABLET ONE (08:38)
[2022-02-14] MEDS ORDERED: methaDONE HCL 40 MG DISPERSABLE TABLET ONE (08:38)
[2022-02-14] MEDS: BACITRACIN 0.9 GM PACKET TP SCH ×2 (10:40→21:38)
[2022-02-14] MEDS: PRENATAL VITAMINS W/ FOLIC ACID TABLET (FP) PO SCH (10:40)
[2022-02-14] MEDS: methaDONE 40 MG, methaDONE 20 MG PO SCH (10:41)
[2022-02-14] MEDS: FUROSEMIDE 20 MG TABLET (FP) PO SCH (10:41)
[2022-02-14] MEDS: LIDOCAINE 5% TOPICAL PATCH TP SCH (10:41)
[2022-02-14] MEDS: LOSARTAN POTASSIUM 50 MG TABLET PO SCH (10:42)
[2022-02-14] MEDS: ACETAMINOPHEN 325 MG TABLET (FP) PO PRN ×2 (10:43→21:38)
[2022-02-14] MEDS: NICOTINE 10 MG CARTRIDGE (INHALER) IH PRN (10:51)
[2022-02-14] MEDS: SIMETHICONE 80 MG TAB.CHEW (FP) PO PRN (21:38)
[2022-02-14] MEDS: THIAMINE HCL 100 MG TABLET (FP) PO SCH (21:38)
[2022-02-14] MEDS: MELATONIN 5 MG TABLETS PO SCH (21:47)
[2022-02-14] MEDS: LIDOCAINE PATCH REMOVAL MC SCH (21:47)
[2022-02-14] MEDS: METHYL SALICYLATE/MENTHOL OINT 30 GM TUBE TP SCH (21:47)
[2022-02-15] MEDS ORDERED: methaDONE HCL 10 MG TABLET ONE (09:46)
[2022-02-15] MEDS ORDERED: methaDONE HCL 40 MG DISPERSABLE TABLET ONE (09:46)
[2022-02-15] MEDS: LOSARTAN POTASSIUM 50 MG TABLET PO SCH (10:56)
[2022-02-15] MEDS: BACITRACIN 0.9 GM PACKET TP SCH ×2 (10:56→22:05)
[2022-02-15] MEDS: methaDONE 40 MG, methaDONE 20 MG PO SCH (10:56)
[2022-02-15] MEDS: LIDOCAINE 5% TOPICAL PATCH TP SCH (10:57)
[2022-02-15] MEDS: PRENATAL VITAMINS W/ FOLIC ACID TABLET (FP) PO SCH (10:58)
[2022-02-15] MEDS: FUROSEMIDE 20 MG TABLET (FP) PO SCH (10:58)
[2022-02-15] MEDS: ACETAMINOPHEN 325 MG TABLET (FP) PO PRN (10:59)
[2022-02-15] MEDS: MENTHOL/PHENOL 1 EACH UD MM PRN (11:02)
[2022-02-15] MEDS ORDERED: ALBUTEROL SO4 0.083% IH SOL 2.5 MG/3 ML VIAL.NEB. NEB PRN (12:26)
[2022-02-15] MEDS: guaiFENesin 600 MG TABLET.ER (FP) PO SCH ×2 (15:55→22:06)
[2022-02-15] MEDS: IBUPROFEN 600 MG TABLET (FP) PO PRN (22:05)
[2022-02-15] MEDS: MONTELUKAST NA 10 MG TABLET PO SCH (22:06)
[2022-02-15] MEDS: THIAMINE HCL 100 MG TABLET (FP) PO SCH (22:06)
[2022-02-15] MEDS: ATORVASTATIN CA 20 MG TABLET (FP) PO SCH (22:06)
[2022-02-15] MEDS: METHYL SALICYLATE/MENTHOL OINT 30 GM TUBE TP SCH (22:07)
[2022-02-15] MEDS: LIDOCAINE PATCH REMOVAL MC SCH (22:08)
[2022-02-15] MEDS: MELATONIN 5 MG TABLETS PO SCH (22:09)
[2022-02-16 10:04] LABS: CALCIUM 8.9 mg/dL (8.5-10.1)
[2022-02-16 10:05] LABS: ALBUMIN 2.9 g/dl (3.4-5.0)
[2022-02-16 10:08] LABS: CREATININE 0.9 mg/dL (0.55-1.3)
[2022-02-16 10:09] LABS: TOT PROT 7.4 g/dl (6.4-8.2)
[2022-02-16 10:10] LABS: BILIRUBIN,TOTAL 0.4 mg/dL (0.2-1)
[2022-02-16] MEDS: BACITRACIN 0.9 GM PACKET TP SCH ×2 (10:57→21:22)
[2022-02-16] MEDS: LOSARTAN POTASSIUM 50 MG TABLET PO SCH (11:00)
[2022-02-16] MEDS: guaiFENesin 600 MG TABLET.ER (FP) PO SCH ×2 (11:01→21:24)
[2022-02-16] MEDS: LIDOCAINE 5% TOPICAL PATCH TP SCH (11:01)
[2022-02-16] MEDS: PRENATAL VITAMINS W/ FOLIC ACID TABLET (FP) PO SCH (11:01)
[2022-02-16] MEDS: HYDROCHLOROTHIAZIDE 25 MG TABLET (FP) PO SCH (11:02)
[2022-02-16] MEDS ORDERED: methaDONE HCL 10 MG TABLET ONE (11:03)
[2022-02-16] MEDS ORDERED: methaDONE HCL 40 MG DISPERSABLE TABLET ONE (11:03)
[2022-02-16] MEDS: methaDONE 40 MG, methaDONE 20 MG PO SCH (11:05)
[2022-02-16] MEDS: FLUTICASONE PROP 0.05% 16 GM NASAL SPRAY NS SCH ×4 (11:23→21:23)
[2022-02-16] MEDS: COLLOIDAL OATMEAL 1 BAR EACH TP PRN (14:19)
[2022-02-16] MEDS: METHYL SALICYLATE/MENTHOL OINT 30 GM TUBE TP SCH (21:22)
[2022-02-16] MEDS: LIDOCAINE PATCH REMOVAL MC SCH (21:23)
[2022-02-16] MEDS: MELATONIN 5 MG TABLETS PO SCH (21:24)
[2022-02-16] MEDS: THIAMINE HCL 100 MG TABLET (FP) PO SCH (21:24)
[2022-02-16] MEDS: ATORVASTATIN CA 20 MG TABLET (FP) PO SCH (21:24)
[2022-02-16] MEDS: MONTELUKAST NA 10 MG TABLET PO SCH (21:24)
[2022-02-17] MEDS: hydrOXYzine PAMOATE 25 MG CAPSULE (FP) PO PRN (06:15)
[2022-02-17] MEDS ORDERED: methaDONE HCL 40 MG DISPERSABLE TABLET ONE (08:34)
[2022-02-17] MEDS ORDERED: methaDONE HCL 10 MG TABLET ONE (08:34)
[2022-02-17] MEDS: BACITRACIN 0.9 GM PACKET TP SCH ×2 (10:44→21:29)
[2022-02-17] MEDS: HYDROCHLOROTHIAZIDE 25 MG TABLET (FP) PO SCH (10:44)
[2022-02-17] MEDS: LIDOCAINE 5% TOPICAL PATCH TP SCH (10:44)
[2022-02-17] MEDS: LOSARTAN POTASSIUM 50 MG TABLET PO SCH (10:44)
[2022-02-17] MEDS: methaDONE 40 MG, methaDONE 20 MG PO SCH (10:45)
[2022-02-17] MEDS: PRENATAL VITAMINS W/ FOLIC ACID TABLET (FP) PO SCH (10:45)
[2022-02-17] MEDS: FLUTICASONE PROP 0.05% 16 GM NASAL SPRAY NS SCH ×2 (10:45→21:28)
[2022-02-17] MEDS: guaiFENesin 600 MG TABLET.ER (FP) PO SCH ×2 (10:45→21:28)
[2022-02-17] MEDS: SIMETHICONE 80 MG TAB.CHEW (FP) PO PRN (21:27)
[2022-02-17] MEDS: ATORVASTATIN CA 20 MG TABLET (FP) PO SCH (21:27)
[2022-02-17] MEDS: MONTELUKAST NA 10 MG TABLET PO SCH (21:28)
[2022-02-17] MEDS: LIDOCAINE PATCH REMOVAL MC SCH (21:28)
[2022-02-17] MEDS: MELATONIN 5 MG TABLETS PO SCH (21:28)
[2022-02-17] MEDS: THIAMINE HCL 100 MG TABLET (FP) PO SCH (21:28)
[2022-02-17] MEDS: METHYL SALICYLATE/MENTHOL OINT 30 GM TUBE TP SCH (21:29)
[2022-02-18] MEDS ORDERED: methaDONE HCL 40 MG DISPERSABLE TABLET ONE (09:30)
[2022-02-18] MEDS ORDERED: methaDONE HCL 10 MG TABLET ONE (09:30)
[2022-02-18] MEDS: PRENATAL VITAMINS W/ FOLIC ACID TABLET (FP) PO SCH (10:50)
[2022-02-18] MEDS: LOSARTAN POTASSIUM 50 MG TABLET PO SCH (10:50)
[2022-02-18] MEDS: LIDOCAINE 5% TOPICAL PATCH TP SCH (10:50)
[2022-02-18] MEDS: BACITRACIN 0.9 GM PACKET TP SCH ×2 (10:50→21:39)
[2022-02-18] MEDS: methaDONE 40 MG, methaDONE 20 MG PO SCH (10:51)
[2022-02-18] MEDS: guaiFENesin 600 MG TABLET.ER (FP) PO SCH ×2 (10:51→21:39)
[2022-02-18] MEDS: HYDROCHLOROTHIAZIDE 25 MG TABLET (FP) PO SCH (10:51)
[2022-02-18] MEDS: FLUTICASONE PROP 0.05% 16 GM NASAL SPRAY NS SCH ×2 (10:54→21:41)
[2022-02-18] MEDS: MENTHOL/PHENOL 1 EACH UD MM PRN (10:56)
[2022-02-18] MEDS: THIAMINE HCL 100 MG TABLET (FP) PO SCH (21:38)
[2022-02-18] MEDS: SIMETHICONE 80 MG TAB.CHEW (FP) PO PRN (21:39)
[2022-02-18] MEDS: MELATONIN 5 MG TABLETS PO SCH (21:39)
[2022-02-18] MEDS: ATORVASTATIN CA 20 MG TABLET (FP) PO SCH (21:39)
[2022-02-18] MEDS: MONTELUKAST NA 10 MG TABLET PO SCH (21:39)
[2022-02-18] MEDS: METHYL SALICYLATE/MENTHOL OINT 30 GM TUBE TP SCH (21:40)
[2022-02-18] MEDS: LIDOCAINE PATCH REMOVAL MC SCH (21:41)
[2022-02-19 07:31] VITALS: TEMP 97.7
[2022-02-19] MEDS ORDERED: methaDONE HCL 40 MG DISPERSABLE TABLET ONE (09:12)
[2022-02-19] MEDS ORDERED: methaDONE HCL 10 MG TABLET ONE (09:12)
[2022-02-19] MEDS: PRENATAL VITAMINS W/ FOLIC ACID TABLET (FP) PO SCH (10:29)
[2022-02-19] MEDS: BACITRACIN 0.9 GM PACKET TP SCH ×2 (10:29→21:54)
[2022-02-19] MEDS: LOSARTAN POTASSIUM 50 MG TABLET PO SCH (10:29)
[2022-02-19] MEDS: methaDONE 40 MG, methaDONE 20 MG PO SCH (10:29)
[2022-02-19] MEDS: HYDROCHLOROTHIAZIDE 25 MG TABLET (FP) PO SCH (10:31)
[2022-02-19] MEDS: guaiFENesin 600 MG TABLET.ER (FP) PO SCH ×2 (10:31→21:54)
[2022-02-19] MEDS: FLUTICASONE PROP 0.05% 16 GM NASAL SPRAY NS SCH ×2 (10:32→21:54)
[2022-02-19] MEDS: LIDOCAINE 5% TOPICAL PATCH TP SCH (10:33)
[2022-02-19] MEDS: NICOTINE 10 MG CARTRIDGE (INHALER) IH PRN (10:34)
[2022-02-19 11:01] VITALS: BP 118/64; PULSE 82
[2022-02-19] MEDS: METHYL SALICYLATE/MENTHOL OINT 30 GM TUBE TP SCH (21:53)
[2022-02-19] MEDS: ATORVASTATIN CA 20 MG TABLET (FP) PO SCH (21:54)
[2022-02-19] MEDS: MELATONIN 5 MG TABLETS PO SCH (21:54)
[2022-02-19] MEDS: MONTELUKAST NA 10 MG TABLET PO SCH (21:54)
[2022-02-19] MEDS: LIDOCAINE PATCH REMOVAL MC SCH (21:54)
[2022-02-19] MEDS: THIAMINE HCL 100 MG TABLET (FP) PO SCH (21:55)
[2022-02-20] MEDS: NICOTINE 10 MG CARTRIDGE (INHALER) IH PRN (06:37)
[2022-02-20] MEDS: BACITRACIN 0.9 GM PACKET TP SCH (09:30)
[2022-02-20] MEDS: SIMETHICONE 80 MG TAB.CHEW (FP) PO PRN (09:30)
[2022-02-20] MEDS: HYDROCHLOROTHIAZIDE 25 MG TABLET (FP) PO SCH (09:30)
[2022-02-20] MEDS: LOSARTAN POTASSIUM 50 MG TABLET PO SCH (09:30)
[2022-02-20] MEDS: FLUTICASONE PROP 0.05% 16 GM NASAL SPRAY NS SCH (09:30)
[2022-02-20] MEDS: guaiFENesin 600 MG TABLET.ER (FP) PO SCH (09:31)
[2022-02-20] MEDS: LIDOCAINE 5% TOPICAL PATCH TP SCH (09:31)
[2022-02-20] MEDS: PRENATAL VITAMINS W/ FOLIC ACID TABLET (FP) PO SCH (09:32)
[2022-02-20] MEDS ORDERED: methaDONE HCL 40 MG DISPERSABLE TABLET ONE (09:34)
[2022-02-20] MEDS ORDERED: methaDONE HCL 10 MG TABLET ONE (09:34)
[2022-02-20] MEDS: methaDONE 40 MG, methaDONE 20 MG PO SCH (09:34)
== END 2022-02-20 09:55 | disposition home or self-care (01) | DRG 772 ==
LOC: YASAS 14:41 → Y5N 14:42
PROVIDERS: ADMIT Allergy & Immunology; ATTEND Allergy & Immunology
PROC: HZ42ZZZ Group Counseling for Substance Abuse Treatment, Cognitive-Behavioral (ICD-10-PCS; principal; 2022-01-30)
DX: F10.20 Alcohol dependence, uncomplicated (principal); F11.20 Opioid dependence, uncomplicated; F14.20 Cocaine dependence, uncomplicated; F33.1 Major depressive disorder, recurrent, moderate; I10 Essential (primary) hypertension; J02.9 Acute pharyngitis, unspecified; E11.9 Type 2 diabetes mellitus without complications; Z79.84 Long term (current) use of oral hypoglycemic drugs; E66.9 Obesity, unspecified; Z68.35 Body mass index [BMI] 35.0-35.9, adult; N39.0 Urinary tract infection, site not specified; L84 Corns and callosities; M17.0 Bilateral primary osteoarthritis of knee; R32 Unspecified urinary incontinence; R30.0 Dysuria; R29.3 Abnormal posture; R60.0 Localized edema; W19.XXXA Unspecified fall, initial encounter; Y92.231 Patient bathroom in hospital as the place of occurrence of the external cause; Z91.81 History of falling; Z86.19 Personal history of other infectious and parasitic diseases; Z99.89 Dependence on other enabling machines and devices; Z91.14 Patient's other noncompliance with medication regimen
CPT/HCPCS: 36415; 80053; 82962; 85027; 87086; 87186; C9803-CS; U0003; U0005

== ENCOUNTER 2022-02-09 12:12 | Emergency (ER) | payer OTHER ==
[2022-02-09 12:22] VITALS: BP 134/78; PULSE 88; TEMP 97.9; BMI 34.7
[2022-02-09] MEDS ORDERED: ACETAMINOPHEN 500 MG TABLET (FP) PO ONE (13:23)
[2022-02-09] MEDS ORDERED: ACETAMINOPHEN 500 MG TABLET (FP) ONE (13:24)
== END 2022-02-09 14:20 | disposition home or self-care (01) ==
LOC: JERFT 12:12
DX: M25.562 Pain in left knee (principal)
CPT/HCPCS: 73562-TC-LT-FY; 99283-25

== ENCOUNTER 2022-03-16 14:11 | Inpatient (IN) | payer OTHER ==
[2022-03-16] MEDS ORDERED: BISMUTH SUBSALICYLATE 262 MG/15 ML BTL PO PRN (15:43)
[2022-03-16] MEDS ORDERED: MAG HYDROX/AL HYDROX/SIMETH 30 ML UNIT-DOSE CUP PO PRN (15:43)
[2022-03-16] MEDS ORDERED: NICOTINE 10 MG CARTRIDGE (INHALER) IH PRN (15:43)
[2022-03-16] MEDS ORDERED: LOPERAMIDE HCL 2 MG CAPSULE PO PRN (15:43)
[2022-03-16] MEDS ORDERED: ACETAMINOPHEN 325 MG TABLET (FP) PO PRN ×2 (15:43)
[2022-03-16] MEDS ORDERED: MAGNESIUM HYDROX 2400MG/30ML ORAL SUSPENSION 30 ML CUP PO PRN (15:43)
[2022-03-16] MEDS ORDERED: DICYCLOMINE HCL 10 MG CAPSULE PO PRN (15:43)
[2022-03-16] MEDS ORDERED: chlordiazePOXIDE HCL 25 MG CAPSULE PO PRN (15:43)
[2022-03-16] MEDS ORDERED: BENZOCAINE/MENTHOL (CHLORASEPTIC ) LOZENGE MM PRN (15:43)
[2022-03-16] MEDS ORDERED: MAGNESIUM CITRATE 300 ML BOTTLE PO PRN (15:43)
[2022-03-16] MEDS ORDERED: METHOCARBAMOL 500 MG TABLET PO PRN (15:43)
[2022-03-16] MEDS ORDERED: ONDANSETRON *ODT* 4 MG TABLET SL PRN (15:43)
[2022-03-16] MEDS ORDERED: cloNIDine HCL 0.1 MG TABLET PO STA (16:01)
[2022-03-16 16:05] VITALS: BMI 35.1
[2022-03-16] MEDS: chlordiazePOXIDE HCL 25 MG CAPSULE PO SCH ×2 (18:41→22:49)
[2022-03-16] MEDS: NICOTINE 7 MG/24 HOURS TOPICAL PATCH TD SCH (18:42)
[2022-03-16] MEDS: hydrOXYzine PAMOATE 25 MG CAPSULE (FP) PO SCH ×2 (18:42→22:48)
[2022-03-16] MEDS: metFORMIN HCL 500 MG TABLET (FP) PO SCH (18:43)
[2022-03-16] MEDS: PRENATAL VITAMINS W/ FOLIC ACID TABLET (FP) PO SCH (18:43)
[2022-03-16] MEDS ORDERED: MELATONIN 5 MG TABLETS PO SCH (22:00)
[2022-03-16] MEDS: ATORVASTATIN CA 10 MG TABLET (FP) PO SCH (22:48)
[2022-03-16] MEDS: MONTELUKAST NA 10 MG TABLET PO SCH (22:48)
[2022-03-16] MEDS: BUDESONIDE/FORMETEROL FUMARATE 160/4.5 mcg INHALER IH SCH (22:48)
[2022-03-16] MEDS: THIAMINE HCL 100 MG TABLET (FP) PO SCH (22:49)
[2022-03-17] MEDS: chlordiazePOXIDE HCL 25 MG CAPSULE PO SCH ×4 (05:57→23:24)
[2022-03-17] MEDS: hydrOXYzine PAMOATE 25 MG CAPSULE (FP) PO SCH ×3 (05:57→13:04)
[2022-03-17] MEDS: metFORMIN HCL 500 MG TABLET (FP) PO SCH ×2 (07:50→18:18)
[2022-03-17] MEDS ORDERED: methaDONE HCL 10 MG TABLET PO SCH (09:30)
[2022-03-17] MEDS: NICOTINE 7 MG/24 HOURS TOPICAL PATCH TD SCH (10:21)
[2022-03-17] MEDS: HYDROCHLOROTHIAZIDE 25 MG TABLET (FP) PO SCH (10:21)
[2022-03-17] MEDS: PRENATAL VITAMINS W/ FOLIC ACID TABLET (FP) PO SCH (10:21)
[2022-03-17] MEDS: ASPIRIN 81 MG CHEWABLE TABLETS PO SCH (10:21)
[2022-03-17] MEDS: BUDESONIDE/FORMETEROL FUMARATE 160/4.5 mcg INHALER IH SCH ×2 (10:21→23:23)
[2022-03-17] MEDS ORDERED: methaDONE HCL 40 MG DISPERSABLE TABLET ONE (10:23)
[2022-03-17] MEDS ORDERED: methaDONE HCL 10 MG TABLET ONE (10:23)
[2022-03-17] MEDS: methaDONE 40 MG, methaDONE 20 MG PO SCH (10:24)
[2022-03-17 11:05] LABS: HEMATOCRIT 43.9 % (32.4-45.2); HEMOGLOBIN 13.9 GM/dL (10.7-15.3); MCH 28.1 pg (25.7-33.7); MCHC 31.7 g/dl (32.0-36.0); MEAN CELL VOLUME 88.6 fl (80-96); MEAN PLT VOLUME 7.7 fl (7.5-11.1); PLATELET COUNT 269 10^3/uL (134-434); RBC 4.95 M/mm3 (3.60-5.2); RDW 15.7 % (11.6-15.6); WHITE BLOOD COUNT 4.9 K/mm3 (4.0-10.0)
[2022-03-17 11:36] LABS: ALBUMIN 2.8 g/dl (3.4-5.0); BLOOD UREA NITROGEN 18.2 mg/dL (7-18); CALCIUM 8.7 mg/dL (8.5-10.1)
[2022-03-17 11:41] LABS: BILIRUBIN,TOTAL 0.7 mg/dL (0.2-1)
[2022-03-17] MEDS: LOSARTAN POTASSIUM 50 MG TABLET PO SCH (13:03)
[2022-03-17] MEDS: IBUPROFEN 400 MG TABLET (FP) PO PRN (13:08)
[2022-03-17] MEDS ORDERED: ALBUTEROL SO4 0.083% IH SOL 2.5 MG/3 ML VIAL.NEB. NEB ONE (17:28)
[2022-03-17] MEDS: ALBUTEROL SO4 HFA INHALER IH PRN (17:42)
[2022-03-17] MEDS ORDERED: chlordiazePOXIDE 5 MG CAPSULE PO PRN (21:27)
[2022-03-17] MEDS: MONTELUKAST NA 10 MG TABLET PO SCH (23:23)
[2022-03-17] MEDS: ATORVASTATIN CA 10 MG TABLET (FP) PO SCH (23:23)
[2022-03-17] MEDS: THIAMINE HCL 100 MG TABLET (FP) PO SCH (23:23)
[2022-03-17] MEDS: ALBUTEROL SO4 0.083% IH SOL 2.5 MG/3 ML VIAL.NEB. NEB SCH (23:45)
[2022-03-18] MEDS ORDERED: methaDONE HCL 10 MG TABLET ONE (04:48)
[2022-03-18] MEDS ORDERED: methaDONE HCL 40 MG DISPERSABLE TABLET ONE (04:48)
[2022-03-18] MEDS ORDERED: chlordiazePOXIDE HCL 25 MG CAPSULE PO SCH (05:00)
[2022-03-18] MEDS: methaDONE 40 MG, methaDONE 20 MG PO SCH (06:20)
[2022-03-18] MEDS: chlordiazePOXIDE HCL 25 MG CAPSULE PO SCH ×2 (06:21→10:34)
[2022-03-18] MEDS: metFORMIN HCL 500 MG TABLET (FP) PO SCH ×2 (06:38→17:27)
[2022-03-18] MEDS: ALBUTEROL SO4 0.083% IH SOL 2.5 MG/3 ML VIAL.NEB. NEB SCH ×3 (06:39→17:28)
[2022-03-18] MEDS: HYDROCHLOROTHIAZIDE 25 MG TABLET (FP) PO SCH (10:33)
[2022-03-18] MEDS: ASPIRIN 81 MG CHEWABLE TABLETS PO SCH (10:34)
[2022-03-18] MEDS: LOSARTAN POTASSIUM 50 MG TABLET PO SCH (10:35)
[2022-03-18] MEDS: PRENATAL VITAMINS W/ FOLIC ACID TABLET (FP) PO SCH (10:35)
[2022-03-18] MEDS: BUDESONIDE/FORMETEROL FUMARATE 160/4.5 mcg INHALER IH SCH ×2 (10:36→22:05)
[2022-03-18] MEDS: THIAMINE HCL 100 MG TABLET (FP) PO SCH (22:05)
[2022-03-18] MEDS: MONTELUKAST NA 10 MG TABLET PO SCH (22:05)
[2022-03-18] MEDS: ATORVASTATIN CA 10 MG TABLET (FP) PO SCH (22:05)
[2022-03-19] MEDS ORDERED: chlordiazePOXIDE HCL 10 MG CAPSULE PO PRN
[2022-03-19 00:06] LABS: SARS-CoV-2 NAA Not Detected (Not Detected)
[2022-03-19] MEDS ORDERED: methaDONE HCL 40 MG DISPERSABLE TABLET ONE (04:38)
[2022-03-19] MEDS ORDERED: methaDONE HCL 10 MG TABLET ONE (04:38)
[2022-03-19] MEDS ORDERED: chlordiazePOXIDE HCL 10 MG CAPSULE PO SCH (05:00)
[2022-03-19] MEDS: methaDONE 40 MG, methaDONE 20 MG PO SCH (06:09)
[2022-03-19] MEDS: chlordiazePOXIDE HCL 10 MG CAPSULE PO SCH ×3 (06:09→18:59)
[2022-03-19] MEDS: metFORMIN HCL 500 MG TABLET (FP) PO SCH ×2 (06:11→18:59)
[2022-03-19] MEDS: PRENATAL VITAMINS W/ FOLIC ACID TABLET (FP) PO SCH (11:06)
[2022-03-19] MEDS: IBUPROFEN 400 MG TABLET (FP) PO PRN (11:06)
[2022-03-19] MEDS: HYDROCHLOROTHIAZIDE 25 MG TABLET (FP) PO SCH (11:07)
[2022-03-19] MEDS: BUDESONIDE/FORMETEROL FUMARATE 160/4.5 mcg INHALER IH SCH ×2 (11:08→22:59)
[2022-03-19] MEDS: LOSARTAN POTASSIUM 50 MG TABLET PO SCH (11:08)
[2022-03-19] MEDS: ASPIRIN 81 MG CHEWABLE TABLETS PO SCH (11:09)
[2022-03-19] MEDS ORDERED: chlordiazePOXIDE 5 MG CAPSULE PO SCH (18:26)
[2022-03-19] MEDS: ATORVASTATIN CA 10 MG TABLET (FP) PO SCH (22:58)
[2022-03-19] MEDS: MONTELUKAST NA 10 MG TABLET PO SCH (22:59)
[2022-03-19] MEDS: THIAMINE HCL 100 MG TABLET (FP) PO SCH (22:59)
[2022-03-20] MEDS ORDERED: methaDONE HCL 10 MG TABLET ONE (04:09)
[2022-03-20] MEDS ORDERED: methaDONE HCL 40 MG DISPERSABLE TABLET ONE (04:09)
[2022-03-20] MEDS ORDERED: chlordiazePOXIDE HCL 10 MG CAPSULE PO SCH (05:00)
[2022-03-20] MEDS: methaDONE 40 MG, methaDONE 20 MG PO SCH (05:53)
[2022-03-20] MEDS: chlordiazePOXIDE 5 MG CAPSULE PO SCH ×2 (05:54→19:41)
[2022-03-20] MEDS: metFORMIN HCL 500 MG TABLET (FP) PO SCH ×2 (07:12→16:40)
[2022-03-20] MEDS: PRENATAL VITAMINS W/ FOLIC ACID TABLET (FP) PO SCH (11:46)
[2022-03-20] MEDS: LOSARTAN POTASSIUM 50 MG TABLET PO SCH (11:47)
[2022-03-20] MEDS: ASPIRIN 81 MG CHEWABLE TABLETS PO SCH (11:48)
[2022-03-20] MEDS: BUDESONIDE/FORMETEROL FUMARATE 160/4.5 mcg INHALER IH SCH (11:48)
[2022-03-20] MEDS: HYDROCHLOROTHIAZIDE 25 MG TABLET (FP) PO SCH (11:48)
[2022-03-20] MEDS: ALBUTEROL SO4 HFA INHALER IH PRN (11:49)
[2022-03-20] MEDS: ATORVASTATIN CA 10 MG TABLET (FP) PO SCH (22:14)
[2022-03-21] MEDS: THIAMINE HCL 100 MG TABLET (FP) PO SCH (01:15)
[2022-03-21] MEDS: BUDESONIDE/FORMETEROL FUMARATE 160/4.5 mcg INHALER IH SCH ×2 (01:15→10:42)
[2022-03-21] MEDS: MONTELUKAST NA 10 MG TABLET PO SCH (01:15)
[2022-03-21] MEDS ORDERED: methaDONE HCL 10 MG TABLET ONE (04:20)
[2022-03-21] MEDS ORDERED: methaDONE HCL 40 MG DISPERSABLE TABLET ONE (04:20)
[2022-03-21] MEDS ORDERED: chlordiazePOXIDE HCL 10 MG CAPSULE PO ONE (05:00)
[2022-03-21] MEDS ORDERED: chlordiazePOXIDE 5 MG CAPSULE PO ONE (05:00)
[2022-03-21] MEDS: methaDONE 40 MG, methaDONE 20 MG PO SCH (06:37)
[2022-03-21] MEDS: metFORMIN HCL 500 MG TABLET (FP) PO SCH (06:38)
[2022-03-21 09:37] VITALS: BP 131/63; PULSE 70; TEMP 97.8
[2022-03-21] MEDS: LOSARTAN POTASSIUM 50 MG TABLET PO SCH (10:41)
[2022-03-21] MEDS: PRENATAL VITAMINS W/ FOLIC ACID TABLET (FP) PO SCH (10:41)
[2022-03-21] MEDS: HYDROCHLOROTHIAZIDE 25 MG TABLET (FP) PO SCH (10:41)
[2022-03-21] MEDS: ASPIRIN 81 MG CHEWABLE TABLETS PO SCH (10:41)
[2022-03-21] MEDS: ALBUTEROL SO4 HFA INHALER IH PRN (10:42)
== END 2022-03-21 12:45 | disposition other institution (70) | DRG 773 ==
LOC: YASAS 14:11 → Y6N 17:49
PROVIDERS: ADMIT Allergy & Immunology; ATTEND Allergy & Immunology
PROC: HZ2ZZZZ Detoxification Services for Substance Abuse Treatment (ICD-10-PCS; principal; 2022-03-16)
DX: F10.230 Alcohol dependence with withdrawal, uncomplicated (principal); F11.20 Opioid dependence, uncomplicated; F14.20 Cocaine dependence, uncomplicated; F17.210 Nicotine dependence, cigarettes, uncomplicated; F41.9 Anxiety disorder, unspecified; F32.A Depression, unspecified; I10 Essential (primary) hypertension; E11.9 Type 2 diabetes mellitus without complications; Z79.84 Long term (current) use of oral hypoglycemic drugs; R26.89 Other abnormalities of gait and mobility; M54.50 Low back pain, unspecified; G89.29 Other chronic pain; E66.9 Obesity, unspecified; Z68.35 Body mass index [BMI] 35.0-35.9, adult; Z99.81 Dependence on supplemental oxygen; Z86.19 Personal history of other infectious and parasitic diseases; Z99.89 Dependence on other enabling machines and devices
CPT/HCPCS: 36415; 80053; 82962; 85027; 86593; 86780; 94640; C9803-CS; J0735; U0003; U0005

== ENCOUNTER 2022-03-21 12:58 | Inpatient (IN) | payer OTHER ==
[2022-03-21] MEDS ORDERED: LOPERAMIDE HCL 2 MG CAPSULE PO PRN (14:45)
[2022-03-21] MEDS ORDERED: BENZOCAINE/MENTHOL (CHLORASEPTIC ) LOZENGE MM PRN (14:45)
[2022-03-21] MEDS ORDERED: MAGNESIUM HYDROX 2400MG/30ML ORAL SUSPENSION 30 ML CUP PO PRN (14:45)
[2022-03-21] MEDS ORDERED: hydrOXYzine PAMOATE 25 MG CAPSULE (FP) PO PRN (14:45)
[2022-03-21] MEDS ORDERED: MAG HYDROX/AL HYDROX/SIMETH 30 ML UNIT-DOSE CUP PO PRN (14:45)
[2022-03-21] MEDS ORDERED: IBUPROFEN 400 MG TABLET (FP) PO PRN (14:45)
[2022-03-21] MEDS ORDERED: ACETAMINOPHEN 325 MG TABLET (FP) PO PRN (14:45)
[2022-03-21] MEDS ORDERED: guaiFENesin 200 MG/10 ML 10 ML UNIT-DOSE CUPS PO PRN (14:45)
[2022-03-21] MEDS ORDERED: MAGNESIUM CITRATE 300 ML BOTTLE PO PRN (14:45)
[2022-03-21] MEDS ORDERED: P-EPHED 60MG/TRIPROLIDI 2.5MG TABLET PO PRN (14:45)
[2022-03-21] MEDS: metFORMIN HCL 500 MG TABLET (FP) PO SCH (16:30)
[2022-03-21] MEDS: MELATONIN 5 MG TABLETS PO SCH (21:52)
[2022-03-21] MEDS: MONTELUKAST NA 10 MG TABLET PO SCH (21:53)
[2022-03-21] MEDS: BUDESONIDE/FORMETEROL FUMARATE 160/4.5 mcg INHALER IH SCH (21:53)
[2022-03-21] MEDS: THIAMINE HCL 100 MG TABLET (FP) PO SCH (21:53)
[2022-03-22] MEDS ORDERED: methaDONE HCL 10 MG TABLET ONE (04:03)
[2022-03-22] MEDS ORDERED: methaDONE HCL 40 MG DISPERSABLE TABLET ONE (04:03)
[2022-03-22] MEDS ORDERED: methaDONE HCL 10 MG TABLET PO SCH (06:00)
[2022-03-22] MEDS ORDERED: methaDONE 40 MG, methaDONE 20 MG PO SCH (06:00)
[2022-03-22] MEDS: metFORMIN HCL 500 MG TABLET (FP) PO SCH ×2 (06:36→16:30)
[2022-03-22] MEDS: BUDESONIDE/FORMETEROL FUMARATE 160/4.5 mcg INHALER IH SCH ×2 (11:16→21:50)
[2022-03-22] MEDS: ASPIRIN 81 MG CHEWABLE TABLETS PO SCH (11:17)
[2022-03-22] MEDS: LOSARTAN POTASSIUM 50 MG TABLET PO SCH (11:17)
[2022-03-22] MEDS: HYDROCHLOROTHIAZIDE 25 MG TABLET (FP) PO SCH (11:17)
[2022-03-22] MEDS: NICOTINE 7 MG/24 HOURS TOPICAL PATCH TD SCH (11:17)
[2022-03-22] MEDS: PRENATAL VITAMINS W/ FOLIC ACID TABLET (FP) PO SCH (11:17)
[2022-03-22] MEDS: NICOTINE 10 MG CARTRIDGE (INHALER) IH PRN (11:23)
[2022-03-22] MEDS: MELATONIN 5 MG TABLETS PO SCH (21:48)
[2022-03-22] MEDS: MONTELUKAST NA 10 MG TABLET PO SCH (21:50)
[2022-03-22] MEDS: THIAMINE HCL 100 MG TABLET (FP) PO SCH (21:50)
[2022-03-23] MEDS: metFORMIN HCL 500 MG TABLET (FP) PO SCH ×2 (06:33→16:58)
[2022-03-23] MEDS ORDERED: methaDONE HCL 10 MG TABLET ONE (09:35)
[2022-03-23] MEDS ORDERED: methaDONE HCL 40 MG DISPERSABLE TABLET ONE (09:36)
[2022-03-23] MEDS ORDERED: methaDONE HCL 40 MG DISPERSABLE TABLET PO SCH (10:00)
[2022-03-23] MEDS: methaDONE 40 MG, methaDONE 10 MG PO SCH (11:06)
[2022-03-23] MEDS: LOSARTAN POTASSIUM 50 MG TABLET PO SCH (11:07)
[2022-03-23] MEDS: HYDROCHLOROTHIAZIDE 25 MG TABLET (FP) PO SCH (11:07)
[2022-03-23] MEDS: ASPIRIN 81 MG CHEWABLE TABLETS PO SCH (11:07)
[2022-03-23] MEDS: PRENATAL VITAMINS W/ FOLIC ACID TABLET (FP) PO SCH (11:07)
[2022-03-23] MEDS: NICOTINE 7 MG/24 HOURS TOPICAL PATCH TD SCH (11:07)
[2022-03-23] MEDS: BUDESONIDE/FORMETEROL FUMARATE 160/4.5 mcg INHALER IH SCH ×2 (11:08→21:43)
[2022-03-23] MEDS: MELATONIN 5 MG TABLETS PO SCH (21:43)
[2022-03-23] MEDS: MONTELUKAST NA 10 MG TABLET PO SCH (21:43)
[2022-03-23] MEDS: THIAMINE HCL 100 MG TABLET (FP) PO SCH (21:43)
[2022-03-24] MEDS: metFORMIN HCL 500 MG TABLET (FP) PO SCH ×2 (06:34→17:58)
[2022-03-24] MEDS ORDERED: methaDONE HCL 40 MG DISPERSABLE TABLET ONE (09:25)
[2022-03-24] MEDS ORDERED: methaDONE HCL 10 MG TABLET ONE (09:25)
[2022-03-24] MEDS: methaDONE 40 MG, methaDONE 10 MG PO SCH (11:08)
[2022-03-24] MEDS: ASPIRIN 81 MG CHEWABLE TABLETS PO SCH (11:09)
[2022-03-24] MEDS: LOSARTAN POTASSIUM 50 MG TABLET PO SCH (11:09)
[2022-03-24] MEDS: HYDROCHLOROTHIAZIDE 25 MG TABLET (FP) PO SCH (11:09)
[2022-03-24] MEDS: PRENATAL VITAMINS W/ FOLIC ACID TABLET (FP) PO SCH (11:10)
[2022-03-24] MEDS: BUDESONIDE/FORMETEROL FUMARATE 160/4.5 mcg INHALER IH SCH ×2 (11:11→22:07)
[2022-03-24] MEDS: NICOTINE 7 MG/24 HOURS TOPICAL PATCH TD SCH (11:12)
[2022-03-24] MEDS: NICOTINE 10 MG CARTRIDGE (INHALER) IH PRN (12:56)
[2022-03-24] MEDS: MELATONIN 5 MG TABLETS PO SCH (22:02)
[2022-03-24] MEDS: LIDOCAINE PATCH REMOVAL MC SCH (22:03)
[2022-03-24] MEDS: MONTELUKAST NA 10 MG TABLET PO SCH (22:07)
[2022-03-24] MEDS: THIAMINE HCL 100 MG TABLET (FP) PO SCH (22:07)
[2022-03-25] MEDS: metFORMIN HCL 500 MG TABLET (FP) PO SCH ×2 (06:31→16:54)
[2022-03-25] MEDS ORDERED: methaDONE HCL 10 MG TABLET ONE (09:25)
[2022-03-25] MEDS ORDERED: methaDONE HCL 40 MG DISPERSABLE TABLET ONE (09:26)
[2022-03-25] MEDS: LOSARTAN POTASSIUM 50 MG TABLET PO SCH (10:43)
[2022-03-25] MEDS: ASPIRIN 81 MG CHEWABLE TABLETS PO SCH (10:44)
[2022-03-25] MEDS: methaDONE 40 MG, methaDONE 10 MG PO SCH (10:44)
[2022-03-25] MEDS: BUDESONIDE/FORMETEROL FUMARATE 160/4.5 mcg INHALER IH SCH ×2 (10:45→22:29)
[2022-03-25] MEDS: NICOTINE 7 MG/24 HOURS TOPICAL PATCH TD SCH (10:45)
[2022-03-25] MEDS: PRENATAL VITAMINS W/ FOLIC ACID TABLET (FP) PO SCH (10:45)
[2022-03-25] MEDS: LIDOCAINE 5% TOPICAL PATCH TP SCH (10:46)
[2022-03-25] MEDS: HYDROCHLOROTHIAZIDE 25 MG TABLET (FP) PO SCH (10:47)
[2022-03-25 14:08] LABS: SARS-CoV-2 NAA Not Detected (Not Detected)
[2022-03-25] MEDS: MONTELUKAST NA 10 MG TABLET PO SCH (22:18)
[2022-03-25] MEDS: LIDOCAINE PATCH REMOVAL MC SCH (22:18)
[2022-03-25] MEDS: MELATONIN 5 MG TABLETS PO SCH (22:18)
[2022-03-25] MEDS: THIAMINE HCL 100 MG TABLET (FP) PO SCH (22:18)
[2022-03-26] MEDS: metFORMIN HCL 500 MG TABLET (FP) PO SCH ×2 (06:14→17:08)
[2022-03-26] MEDS ORDERED: methaDONE HCL 40 MG DISPERSABLE TABLET ONE (08:10)
[2022-03-26] MEDS ORDERED: methaDONE HCL 10 MG TABLET ONE (08:10)
[2022-03-26] MEDS: PRENATAL VITAMINS W/ FOLIC ACID TABLET (FP) PO SCH (11:12)
[2022-03-26] MEDS: ASPIRIN 81 MG CHEWABLE TABLETS PO SCH (11:12)
[2022-03-26] MEDS: LOSARTAN POTASSIUM 50 MG TABLET PO SCH (11:12)
[2022-03-26] MEDS: HYDROCHLOROTHIAZIDE 25 MG TABLET (FP) PO SCH (11:12)
[2022-03-26] MEDS: methaDONE 40 MG, methaDONE 10 MG PO SCH (11:12)
[2022-03-26] MEDS: BUDESONIDE/FORMETEROL FUMARATE 160/4.5 mcg INHALER IH SCH ×2 (11:13→22:46)
[2022-03-26] MEDS: LIDOCAINE 5% TOPICAL PATCH TP SCH (11:13)
[2022-03-26] MEDS: NICOTINE 7 MG/24 HOURS TOPICAL PATCH TD SCH (11:13)
[2022-03-26] MEDS: LIDOCAINE PATCH REMOVAL MC SCH (22:41)
[2022-03-26] MEDS: MELATONIN 5 MG TABLETS PO SCH (22:41)
[2022-03-26] MEDS: MONTELUKAST NA 10 MG TABLET PO SCH (22:42)
[2022-03-26] MEDS: THIAMINE HCL 100 MG TABLET (FP) PO SCH (22:42)
[2022-03-27] MEDS: metFORMIN HCL 500 MG TABLET (FP) PO SCH (06:18)
[2022-03-27 07:18] VITALS: TEMP 96.2
[2022-03-27] MEDS ORDERED: methaDONE HCL 10 MG TABLET ONE (09:06)
[2022-03-27] MEDS ORDERED: methaDONE HCL 40 MG DISPERSABLE TABLET ONE (09:06)
[2022-03-27 10:02] VITALS: BP 112/67; PULSE 75
[2022-03-27] MEDS: BUDESONIDE/FORMETEROL FUMARATE 160/4.5 mcg INHALER IH SCH (11:00)
[2022-03-27] MEDS: ASPIRIN 81 MG CHEWABLE TABLETS PO SCH (11:00)
[2022-03-27] MEDS: PRENATAL VITAMINS W/ FOLIC ACID TABLET (FP) PO SCH (11:00)
[2022-03-27] MEDS: HYDROCHLOROTHIAZIDE 25 MG TABLET (FP) PO SCH (11:00)
[2022-03-27] MEDS: LOSARTAN POTASSIUM 50 MG TABLET PO SCH (11:00)
[2022-03-27] MEDS: methaDONE 40 MG, methaDONE 10 MG PO SCH (11:01)
[2022-03-27] MEDS: NICOTINE 10 MG CARTRIDGE (INHALER) IH PRN (11:04)
[2022-03-27] MEDS: NICOTINE 7 MG/24 HOURS TOPICAL PATCH TD SCH (11:13)
[2022-03-27] MEDS: LIDOCAINE 5% TOPICAL PATCH TP SCH (11:13)
== END 2022-03-27 12:30 | disposition home or self-care (01) | DRG 772 ==
LOC: YASAS 12:58 → Y5N 12:59
PROVIDERS: ADMIT Allergy & Immunology; ATTEND Allergy & Immunology
PROC: HZ42ZZZ Group Counseling for Substance Abuse Treatment, Cognitive-Behavioral (ICD-10-PCS; principal; 2022-03-21)
DX: F10.20 Alcohol dependence, uncomplicated (principal); F11.20 Opioid dependence, uncomplicated; F14.20 Cocaine dependence, uncomplicated; F33.1 Major depressive disorder, recurrent, moderate; F41.9 Anxiety disorder, unspecified; F32.A Depression, unspecified; F43.10 Post-traumatic stress disorder, unspecified; I10 Essential (primary) hypertension; J45.909 Unspecified asthma, uncomplicated; M54.50 Low back pain, unspecified; G89.29 Other chronic pain; R60.0 Localized edema; E66.9 Obesity, unspecified; Z68.33 Body mass index [BMI] 33.0-33.9, adult; Z86.19 Personal history of other infectious and parasitic diseases; Z99.89 Dependence on other enabling machines and devices
CPT/HCPCS: 82962; C9803-CS; U0003; U0005

== ENCOUNTER 2022-08-21 16:44 | Emergency (ER) | payer OTHER ==
[2022-08-21 16:50] VITALS: TEMP 98.3; BMI 45.7
[2022-08-21] MEDS ORDERED: cloNIDine HCL 0.1 MG TABLET PO ONE (19:09)
[2022-08-21] MEDS ORDERED: ACETAMINOPHEN 500 MG TABLET (FP) PO ONE (19:09)
[2022-08-21] MEDS ORDERED: ACETAMINOPHEN 500 MG TABLET (FP) ONE (19:16)
[2022-08-21] MEDS ORDERED: cloNIDine HCL 0.1 MG TABLET ONE (19:20)
[2022-08-21] MEDS ORDERED: METHOCARBAMOL 500 MG TABLET PO ONE (19:48)
[2022-08-21] MEDS ORDERED: METHOCARBAMOL 500 MG TABLET ONE (21:12)
[2022-08-21 21:30] LABS: EOS % 2.8 % (0-4.5); HEMATOCRIT 45.6 % (32.4-45.2); HEMOGLOBIN 14.4 GM/dL (10.7-15.3); LYMPH % 42.3 % (8-40); MCHC 31.7 g/dl (32.0-36.0); MEAN CELL VOLUME 88.4 fl (80-96); MEAN PLT VOLUME 7.3 fl (7.5-11.1); MONO % 7.2 % (3.8-10.2); NEUT % 46.7 % (42.8-82.8); PLATELET COUNT 254 10^3/uL (134-434); RBC 5.15 M/mm3 (3.60-5.2); WHITE BLOOD COUNT 5.5 K/mm3 (4.0-10.0)
[2022-08-21 21:59] LABS: ALBUMIN 2.9 g/dl (3.4-5.0); CALCIUM 8.9 mg/dL (8.5-10.1)
[2022-08-21 22:04] LABS: BILIRUBIN,TOTAL 0.5 mg/dL (0.2-1); CREATININE 0.9 mg/dL (0.55-1.3)
[2022-08-21 22:14] VITALS: BP 124/83; PULSE 64; RESP 20
== END 2022-08-21 22:41 | disposition home or self-care (01) ==
LOC: JER 16:44
DX: M62.831 Muscle spasm of calf (principal); I10 Essential (primary) hypertension
CPT/HCPCS: 36415; 80053; 82962; 85025; 93971-TC; 99284-25

== ENCOUNTER 2022-08-22 01:00 | Inpatient (IN) | payer OTHER ==
[2022-08-22] MEDS ORDERED: ALBUTEROL SO4 HFA INHALER IH PRN (01:26)
[2022-08-22] MEDS ORDERED: IBUPROFEN 400 MG TABLET (FP) PO PRN (01:27)
[2022-08-22] MEDS ORDERED: MELATONIN 5 MG TABLETS PO PRN (01:27)
[2022-08-22] MEDS ORDERED: NALOXONE HCL (KLOXXADO) 8 MG SPRAY NS PRN (01:27)
[2022-08-22] MEDS ORDERED: NALOXONE HCL 0.4 MG/ML VIAL IM PRN (01:27)
[2022-08-22] MEDS ORDERED: BENZOCAINE/MENTHOL (CHLORASEPTIC ) LOZENGE MM PRN (01:27)
[2022-08-22] MEDS ORDERED: MAGNESIUM CITRATE 300 ML BOTTLE PO PRN (01:27)
[2022-08-22] MEDS ORDERED: MAGNESIUM HYDROX 2400MG/30ML ORAL SUSPENSION 30 ML CUP PO PRN (01:27)
[2022-08-22] MEDS ORDERED: DICYCLOMINE HCL 10 MG CAPSULE PO PRN (01:27)
[2022-08-22] MEDS ORDERED: guaiFENesin 200 MG/10 ML 10 ML UNIT-DOSE CUPS PO PRN (01:27)
[2022-08-22] MEDS ORDERED: ACETAMINOPHEN 325 MG TABLET (FP) PO PRN ×2 (01:27)
[2022-08-22] MEDS ORDERED: MAG HYDROX/AL HYDROX/SIMETH 30 ML UNIT-DOSE CUP PO PRN (01:27)
[2022-08-22] MEDS ORDERED: ONDANSETRON *ODT* 4 MG TABLET SL PRN (01:27)
[2022-08-22] MEDS ORDERED: LOPERAMIDE HCL 2 MG CAPSULE PO PRN (01:27)
[2022-08-22] MEDS ORDERED: P-EPHED 60MG/TRIPROLIDI 2.5MG TABLET PO PRN (01:27)
[2022-08-22] MEDS ORDERED: BISMUTH SUBSALICYLATE 524 MG/30 ML PO PRN (01:27)
[2022-08-22] MEDS ORDERED: cloNIDine HCL 0.1 MG TABLET PO ONE (01:29)
[2022-08-22 01:35] VITALS: BMI 33.3
[2022-08-22] MEDS: INSULIN SLIDING SCALE (NOVOLOG) 1 VIAL SQ SCH ×3 (02:12→17:54)
[2022-08-22] MEDS: METHOCARBAMOL 500 MG TABLET PO PRN ×2 (05:43→12:50)
[2022-08-22] MEDS ORDERED: methaDONE HCL 10 MG TABLET PO SCH (08:15)
[2022-08-22] MEDS: methaDONE 40 MG, methaDONE 20 MG PO SCH (08:27)
[2022-08-22] MEDS: ASPIRIN 81 MG CHEWABLE TABLETS PO SCH (12:50)
[2022-08-22] MEDS: PRENATAL VITAMINS W/ FOLIC ACID TABLET (FP) PO SCH (12:50)
[2022-08-22] MEDS: IBUPROFEN 600 MG TABLET (FP) PO PRN ×2 (12:50→17:55)
[2022-08-22] MEDS: BUDESONIDE/FORMETEROL FUMARATE 160/4.5 mcg INHALER IH SCH ×2 (12:51→22:06)
[2022-08-22] MEDS: LOSARTAN POTASSIUM 50 MG TABLET PO SCH (14:22)
[2022-08-22] MEDS: HYDROCHLOROTHIAZIDE 25 MG TABLET (FP) PO SCH (14:22)
[2022-08-22] MEDS: hydrOXYzine PAMOATE 25 MG CAPSULE (FP) PO PRN ×2 (14:22→22:07)
[2022-08-22 17:23] VITALS: RESP 18
[2022-08-22] MEDS: metFORMIN HCL 500 MG TABLET (FP) PO SCH (17:54)
[2022-08-22] MEDS ORDERED: LISINOPRIL 5 MG TABLET PO ONE (21:48)
[2022-08-22] MEDS ORDERED: MONTELUKAST NA 10 MG TABLET PO SCH (22:00)
[2022-08-22] MEDS ORDERED: THIAMINE HCL 100 MG TABLET (FP) PO SCH (22:00)
[2022-08-23] MEDS: methaDONE 40 MG, methaDONE 20 MG PO SCH (05:47)
[2022-08-23] MEDS: METHOCARBAMOL 500 MG TABLET PO PRN (05:50)
[2022-08-23] MEDS: INSULIN SLIDING SCALE (NOVOLOG) 1 VIAL SQ SCH (07:16)
[2022-08-23] MEDS: metFORMIN HCL 500 MG TABLET (FP) PO SCH (07:17)
[2022-08-23 09:04] VITALS: BP 129/69; PULSE 63; TEMP 96.9
[2022-08-23] MEDS: LOSARTAN POTASSIUM 50 MG TABLET PO SCH (09:26)
[2022-08-23] MEDS: BUDESONIDE/FORMETEROL FUMARATE 160/4.5 mcg INHALER IH SCH (09:26)
[2022-08-23] MEDS: ASPIRIN 81 MG CHEWABLE TABLETS PO SCH (09:26)
[2022-08-23] MEDS: HYDROCHLOROTHIAZIDE 25 MG TABLET (FP) PO SCH (09:26)
[2022-08-23] MEDS: PRENATAL VITAMINS W/ FOLIC ACID TABLET (FP) PO SCH (09:26)
== END 2022-08-23 12:15 | disposition home or self-care (01) | DRG 773 ==
LOC: YASAS 01:00 → UNDOADMIN 01:22 → Y6N 01:22
PROVIDERS: ADMIT Allergy & Immunology; ATTEND Surgery
PROC: HZ2ZZZZ Detoxification Services for Substance Abuse Treatment (ICD-10-PCS; principal; 2022-08-22)
DX: F10.230 Alcohol dependence with withdrawal, uncomplicated (principal); F11.20 Opioid dependence, uncomplicated; F14.20 Cocaine dependence, uncomplicated; F17.210 Nicotine dependence, cigarettes, uncomplicated; F41.9 Anxiety disorder, unspecified; F32.A Depression, unspecified; I10 Essential (primary) hypertension; J45.20 Mild intermittent asthma, uncomplicated; E11.9 Type 2 diabetes mellitus without complications; Z79.84 Long term (current) use of oral hypoglycemic drugs; E66.9 Obesity, unspecified; Z68.33 Body mass index [BMI] 33.0-33.9, adult; Z86.19 Personal history of other infectious and parasitic diseases; M54.50 Low back pain, unspecified; G89.29 Other chronic pain; Z99.89 Dependence on other enabling machines and devices
CPT/HCPCS: 82962; C9803-CS; U0003; U0005

== ENCOUNTER 2023-04-22 10:14 | Inpatient (IN) | payer OTHER ==
[2023-04-22 11:26] VITALS: BMI 35.4
[2023-04-22] MEDS ORDERED: NICOTINE 10 MG CARTRIDGE (INHALER) IH PRN (15:52)
[2023-04-22] MEDS ORDERED: LOPERAMIDE HCL 2 MG CAPSULE PO PRN (15:52)
[2023-04-22] MEDS ORDERED: BENZOCAINE/MENTHOL (CHLORASEPTIC ) LOZENGE MM PRN (15:52)
[2023-04-22] MEDS ORDERED: hydrOXYzine PAMOATE 25 MG CAPSULE (FP) PO PRN (15:52)
[2023-04-22] MEDS ORDERED: BENZONATATE 200 MG CAPSULE PO PRN (15:52)
[2023-04-22] MEDS ORDERED: POLYETHYLENE GLYCOL (HEALTHYLAX) 3350 17 GM PACKET PO PRN (15:52)
[2023-04-22] MEDS ORDERED: AMMONIUM LACTATE 12% LOTION 225 GM BOTTLE TP PRN (15:52)
[2023-04-22] MEDS ORDERED: NALOXONE HCL 0.4 MG/ML VIAL IM PRN (15:52)
[2023-04-22] MEDS ORDERED: NALOXONE HCL (KLOXXADO) 8 MG SPRAY NS PRN (15:52)
[2023-04-22] MEDS ORDERED: MAG HYDROX/AL HYDROX/SIMETH 30 ML UNIT-DOSE CUP PO PRN (15:52)
[2023-04-22] MEDS ORDERED: guaiFENesin 600 MG TABLET.ER (FP) PO PRN (15:52)
[2023-04-22] MEDS ORDERED: COLLOIDAL OATMEAL 1 BAR EACH TP PRN (15:52)
[2023-04-22] MEDS ORDERED: IBUPROFEN 400 MG TABLET (FP) PO PRN (15:52)
[2023-04-22] MEDS ORDERED: MAGNESIUM HYDROX 2400MG/30ML ORAL SUSPENSION 30 ML CUP PO PRN (15:52)
[2023-04-22] MEDS ORDERED: ACETAMINOPHEN 325 MG TABLET (FP) PO PRN (15:52)
[2023-04-22] MEDS ORDERED: ALBUTEROL SO4 HFA INHALER IH PRN (15:57)
[2023-04-22] MEDS ORDERED: HYDROCHLOROTHIAZIDE 25 MG TABLET (FP) PO ONE (17:40)
[2023-04-22] MEDS ORDERED: LOSARTAN POTASSIUM 50 MG TABLET PO ONE (17:42)
[2023-04-22] MEDS ORDERED: ASPIRIN COATED 81 MG TABLET.EC PO ONE (17:46)
[2023-04-22] MEDS: IBUPROFEN 600 MG TABLET (FP) PO PRN (17:56)
[2023-04-22] MEDS: metFORMIN HCL 500 MG TABLET (FP) PO SCH (17:56)
[2023-04-22] MEDS: BUDESONIDE/FORMETEROL FUMARATE 160/4.5 mcg INHALER IH SCH (21:42)
[2023-04-22] MEDS ORDERED: MELATONIN 5 MG TABLETS PO SCH (22:00)
[2023-04-22] MEDS ORDERED: ATORVASTATIN CA 10 MG TABLET (FP) PO SCH (22:00)
[2023-04-22] MEDS ORDERED: MONTELUKAST NA 10 MG TABLET PO SCH (22:00)
[2023-04-22] MEDS ORDERED: THIAMINE HCL 100 MG TABLET (FP) PO SCH (22:00)
[2023-04-23] MEDS: IBUPROFEN 600 MG TABLET (FP) PO PRN (06:08)
[2023-04-23] MEDS: metFORMIN HCL 500 MG TABLET (FP) PO SCH ×2 (07:53→19:02)
[2023-04-23] MEDS ORDERED: methaDONE HCL 10 MG TABLET PO ONE (08:15)
[2023-04-23] MEDS ORDERED: methaDONE 40 MG, methaDONE 20 MG PO SCH (08:30)
[2023-04-23] MEDS ORDERED: METHOCARBAMOL 500 MG TABLET PO ONE (09:00)
[2023-04-23] MEDS ORDERED: PRENATAL VITAMINS W/ FOLIC ACID TABLET (FP) PO SCH (10:00)
[2023-04-23] MEDS ORDERED: HYDROCHLOROTHIAZIDE 25 MG TABLET (FP) PO SCH (10:00)
[2023-04-23] MEDS ORDERED: NICOTINE 21 MG/24 HOURS TOPICAL PATCH TD SCH (10:00)
[2023-04-23] MEDS ORDERED: ASPIRIN 81 MG CHEWABLE TABLETS PO SCH (10:00)
[2023-04-23] MEDS ORDERED: LOSARTAN POTASSIUM 50 MG TABLET PO SCH (10:00)
[2023-04-23] MEDS: BUDESONIDE/FORMETEROL FUMARATE 160/4.5 mcg INHALER IH SCH (10:51)
[2023-04-23 11:11] LABS: CALCIUM 9.9 mg/dL (8.5-10.1)
[2023-04-23 11:12] LABS: ALBUMIN 3.6 g/dl (3.4-5.0); BLOOD UREA NITROGEN 16.2 mg/dL (7-18)
[2023-04-23 11:15] LABS: CREATININE 0.9 mg/dL (0.55-1.3)
[2023-04-23 11:16] LABS: BILIRUBIN,TOTAL 1.1 mg/dL (0.2-1); TOT PROT 8.3 g/dl (6.4-8.2)
[2023-04-23 11:22] LABS: HEMATOCRIT 50.3 % (32.4-45.2); HEMOGLOBIN 16.2 GM/dL (10.7-15.3); MCH 28.6 pg (25.7-33.7); MCHC 32.2 g/dl (32.0-36.0); MEAN CELL VOLUME 88.7 fl (80-96); MEAN PLT VOLUME 8.1 fl (7.5-11.1); PLATELET COUNT 269 10^3/uL (134-434); RBC 5.67 M/mm3 (3.60-5.2); WHITE BLOOD COUNT 6.4 K/mm3 (4.0-10.0)
[2023-04-23 16:06] VITALS: BP 167/115; PULSE 100; RESP 18; TEMP 97.7
[2023-04-24] MEDS ORDERED: NICOTINE 14 MG/24 HOURS TOPICAL PATCH TD ONE (00:05)
[2023-04-24] MEDS ORDERED: FUROSEMIDE 40 MG/4 ML INJECTABLE VIAL IVPUSH ONE (00:06)
[2023-04-24] MEDS ORDERED: ENOXAPARIN NA (PORCINE) 40 MG/0.4 ML DISP.SYRIN SQ SCH (10:00)
== END 2023-04-23 18:00 | disposition short-term general hospital (02) | DRG 772 ==
LOC: YASAS 10:14 → Y5N 15:41
PROVIDERS: ADMIT Allergy & Immunology; ATTEND Psychiatry & Neurology Pain Medicine
PROC: HZ42ZZZ Group Counseling for Substance Abuse Treatment, Cognitive-Behavioral (ICD-10-PCS; principal; 2023-04-22)
DX: F11.20 Opioid dependence, uncomplicated (principal); F14.20 Cocaine dependence, uncomplicated; F17.210 Nicotine dependence, cigarettes, uncomplicated; F31.9 Bipolar disorder, unspecified; I10 Essential (primary) hypertension; J45.20 Mild intermittent asthma, uncomplicated; E78.2 Mixed hyperlipidemia; E11.9 Type 2 diabetes mellitus without complications; Z79.84 Long term (current) use of oral hypoglycemic drugs; R60.1 Generalized edema; M54.50 Low back pain, unspecified; G89.29 Other chronic pain; M15.9 Polyosteoarthritis, unspecified; R29.6 Repeated falls; E66.9 Obesity, unspecified; Z68.35 Body mass index [BMI] 35.0-35.9, adult; Z86.19 Personal history of other infectious and parasitic diseases; Z99.89 Dependence on other enabling machines and devices
CPT/HCPCS: 36415; 80053; 82962; 85027; 86593; 86780; 86803; 87522; 87635

== ENCOUNTER 2023-04-23 18:28 | Inpatient (IN) | payer OTHER ==
[2023-04-23] MEDS ORDERED: ACETAMINOPHEN 1000 MG/100 ML BAG IVPB ONE (19:32)
[2023-04-23] MEDS ORDERED: ACETAMINOPHEN INJECTION 100 ML IVPB ONE (19:34)
[2023-04-23 20:15] LABS: BASO % 0.7 % (0-2.0); EOS % 0.2 % (0-4.5); HEMATOCRIT 50.7 % (32.4-45.2); HEMOGLOBIN 16.6 GM/dL (10.7-15.3); LYMPH % 24.7 % (8-40); MCH 28.2 pg (25.7-33.7); MCHC 32.8 g/dl (32.0-36.0); MEAN CELL VOLUME 86.1 fl (80-96); MEAN PLT VOLUME 7.1 fl (7.5-11.1); MONO % 9.7 % (3.8-10.2); NEUT % 64.7 % (42.8-82.8); PLATELET COUNT 284 10^3/uL (134-434); RBC 5.89 M/mm3 (3.60-5.2); WHITE BLOOD COUNT 9.2 K/mm3 (4.0-10.0)
[2023-04-23 20:23] LABS: POTASSIUM 3.9 mmol/L (3.5-5.1)
[2023-04-23 20:25] LABS: BLOOD UREA NITROGEN 16.2 mg/dL (7-18); CALCIUM 9.3 mg/dL (8.5-10.1)
[2023-04-23 20:26] LABS: ALBUMIN 3.4 g/dl (3.4-5.0); MAGNESIUM 1.5 mg/dL (1.8-2.4)
[2023-04-23 20:30] LABS: BILIRUBIN,TOTAL 0.8 mg/dL (0.2-1); TOT PROT 7.9 g/dl (6.4-8.2)
[2023-04-23 20:31] LABS: INR 1.11 (0.83-1.09); PROTHROMBIN TIME (PATIENT) 12.9 SEC (9.7-13.0)
[2023-04-23 20:33] LABS: ACTIVATED PTT 37.7 SECONDS (25.2-36.5)
[2023-04-23 20:34] LABS: N-TERMINAL BNP 1775.4 pg/ml (5-125)
[2023-04-23] MEDS ORDERED: LORazepam 2 MG/ML SDV VIAL IVPUSH ONE (20:37)
[2023-04-23] MEDS ORDERED: MAGNESIUM SULF 50% (8.12 MEQ/2 ML-1 GM VIAL) IVPB ONE (20:44)
[2023-04-23] MEDS ORDERED: MAGNESIUM SULFATE IN WATER 2 GM/50 ML IVPB IVPB ONE (21:06)
[2023-04-23] MEDS ORDERED: FUROSEMIDE 40 MG/4 ML INJECTABLE VIAL ONE (21:31)
[2023-04-23] MEDS ORDERED: FUROSEMIDE 40 MG/4 ML INJECTABLE VIAL IVPUSH ONE (21:31)
[2023-04-23 21:53] LABS: ARTERIAL BLD GAS O2 SATURATION 90.9 % (95-98); ARTERIAL BLOOD GAS BASE EXCESS 1.6 mmol/L (-2-2); ARTERIAL BLOOD GAS PO2 54.2 mmHg (80-100); ARTERIAL BLOOD GAS pH 7.491 (7.350-7.450)
[2023-04-23 21:55] LABS: ALLENS TEST POSITIVE
[2023-04-23 22:47] LABS: EPI CELLS 16 /uL (0-25.1); HYALINE CASTS 0 /uL (0-3.1); PH,URINE 7.5 (5.0-8.0); URINE APPEARANCE CLEAR; URINE BACTERIA 5182 /uL (0-1359); URINE BILIRUBIN NEGATIVE (NEGATIVE); URINE COLOR YELLOW; URINE GLUCOSE (UA) NEGATIVE (NEGATIVE); URINE KETONE TRACE (NEGATIVE); URINE LEUK ESTERASE NEGATIVE (NEGATIVE); URINE NITRITE NEGATIVE (NEGATIVE); URINE PROTEIN 2+ (NEGATIVE); URINE RBC 34 /uL (0-23.9); URINE WBC 13 /uL (0-25.8)
[2023-04-23 22:51] LABS: PHENCYCLIDINE,URINE NEGATIVE (NEGATIVE)
[2023-04-23 22:52] LABS: URINE AMPHETAMINES NEGATIVE (NEGATIVE); URINE BARBITURATES NEGATIVE (NEGATIVE); URINE BENZODIAZEPINES NEGATIVE (NEGATIVE)
[2023-04-23 22:56] LABS: COCAINE, UR POSITIVE (NEGATIVE); METHADONE, UR POSITIVE (NEGATIVE); OPIATES, URI POSITIVE (NEGATIVE)
[2023-04-23] MEDS ORDERED: CEFTRIAXONE 1 GM in DEXTROSE 5%-WATER - 50 ML IVPB ONE (23:47)
[2023-04-23] MEDS ORDERED: cefTRIAXone SODIUM 1 GM VIAL ONE (23:51)
[2023-04-24] MEDS ORDERED: hydrALAZINE HCL 20 MG/ML VIAL IVPUSH ONE
[2023-04-24] MEDS ORDERED: FUROSEMIDE 40 MG/4 ML INJECTABLE VIAL IVPUSH ONE (02:32)
[2023-04-24] MEDS ORDERED: LORazepam 2 MG/ML SDV VIAL IVPUSH ONE (02:44)
[2023-04-24] MEDS ORDERED: ACETAMINOPHEN 500 MG TABLET (FP) PO ONE (06:27)
[2023-04-24] MEDS ORDERED: methaDONE HCL 10 MG TABLET PO SCH (06:30)
[2023-04-24] MEDS ORDERED: methaDONE HCL 40 MG DISPERSABLE TABLET ONE (06:31)
[2023-04-24] MEDS: methaDONE 40 MG, methaDONE 20 MG PO SCH (09:04)
[2023-04-24] MEDS ORDERED: ENOXAPARIN NA (PORCINE) 40 MG/0.4 ML DISP.SYRIN SQ ONE (09:32)
[2023-04-24] MEDS ORDERED: LISINOPRIL 20 MG TABLET ONE (09:32)
[2023-04-24] MEDS: ENOXAPARIN NA (PORCINE) 40 MG/0.4 ML DISP.SYRIN SQ SCH (09:38)
[2023-04-24] MEDS: LISINOPRIL 20 MG TABLET PO SCH (09:39)
[2023-04-24] MEDS ORDERED: LISINOPRIL 20 MG TABLET PO SCH (10:00)
[2023-04-24] MEDS ORDERED: ALBUTEROL SO4 HFA INHALER IH PRN (15:11)
[2023-04-24] MEDS: NICOTINE 14 MG/24 HOURS TOPICAL PATCH TD SCH (15:50)
[2023-04-24] MEDS: HYDROCHLOROTHIAZIDE 25 MG TABLET (FP) PO SCH (15:50)
[2023-04-24] MEDS: ACETAMINOPHEN 325 MG TABLET (FP) PO PRN (18:41)
[2023-04-24] MEDS: ATORVASTATIN CA 10 MG TABLET (FP) PO SCH (22:02)
[2023-04-24] MEDS: MONTELUKAST NA 10 MG TABLET PO SCH (22:03)
[2023-04-24] MEDS: BUDESONIDE/FORMETEROL FUMARATE 160/4.5 mcg INHALER IH SCH (22:05)
[2023-04-25] MEDS: methaDONE 40 MG, methaDONE 20 MG PO SCH (05:02)
[2023-04-25] MEDS: ACETAMINOPHEN 325 MG TABLET (FP) PO PRN ×2 (05:04→18:39)
[2023-04-25 08:37] LABS: BASO % 0.5 % (0-2.0); EOS % 0.9 % (0-4.5); HEMATOCRIT 50.6 % (32.4-45.2); HEMOGLOBIN 16.6 GM/dL (10.7-15.3); LYMPH % 29.4 % (8-40); MCH 28.6 pg (25.7-33.7); MCHC 32.8 g/dl (32.0-36.0); MEAN CELL VOLUME 87.3 fl (80-96); MEAN PLT VOLUME 7.9 fl (7.5-11.1); MONO % 11.1 % (3.8-10.2); NEUT % 58.1 % (42.8-82.8); PLATELET COUNT 280 10^3/uL (134-434); RBC 5.79 M/mm3 (3.60-5.2); WHITE BLOOD COUNT 8.2 K/mm3 (4.0-10.0)
[2023-04-25 08:55] LABS: BLOOD UREA NITROGEN 24.6 mg/dL (7-18)
[2023-04-25 08:56] LABS: ALBUMIN 3.3 g/dl (3.4-5.0); MAGNESIUM 1.9 mg/dL (1.8-2.4)
[2023-04-25 08:58] LABS: CREATININE 1.2 mg/dL (0.55-1.3); PHOSPHOROUS 4.6 mg/dL (2.5-4.9)
[2023-04-25 08:59] LABS: BILIRUBIN,TOTAL 0.9 mg/dL (0.2-1); TOT PROT 7.5 g/dl (6.4-8.2)
[2023-04-25] MEDS: NICOTINE 14 MG/24 HOURS TOPICAL PATCH TD SCH (09:57)
[2023-04-25] MEDS: ENOXAPARIN NA (PORCINE) 40 MG/0.4 ML DISP.SYRIN SQ SCH (09:58)
[2023-04-25] MEDS: HYDROCHLOROTHIAZIDE 25 MG TABLET (FP) PO SCH (09:58)
[2023-04-25] MEDS: LISINOPRIL 20 MG TABLET PO SCH (09:58)
[2023-04-25] MEDS: BUDESONIDE/FORMETEROL FUMARATE 160/4.5 mcg INHALER IH SCH ×2 (09:59→22:13)
[2023-04-25] MEDS: LIDOCAINE 5% TOPICAL PATCH TP SCH (14:30)
[2023-04-25] MEDS: MONTELUKAST NA 10 MG TABLET PO SCH (22:13)
[2023-04-25] MEDS: ATORVASTATIN CA 10 MG TABLET (FP) PO SCH (22:13)
[2023-04-25] MEDS: LIDOCAINE PATCH REMOVAL MC SCH (22:15)
[2023-04-25] MEDS: ACETAMINOPHEN 1000 MG/100 ML BAG IVPB PRN (22:36)
[2023-04-26] MEDS ORDERED: IBUPROFEN 600 MG TABLET (FP) PO ONE (03:19)
[2023-04-26] MEDS: methaDONE 40 MG, methaDONE 20 MG PO SCH (06:07)
[2023-04-26 08:39] LABS: POTASSIUM 4.1 mmol/L (3.5-5.1)
[2023-04-26 08:45] LABS: CALCIUM 9.1 mg/dL (8.5-10.1)
[2023-04-26 08:46] LABS: BLOOD UREA NITROGEN 34.5 mg/dL (7-18); MAGNESIUM 2.3 mg/dL (1.8-2.4)
[2023-04-26 08:49] LABS: CREATININE 1.4 mg/dL (0.55-1.3)
[2023-04-26 08:50] LABS: PHOSPHOROUS 5.2 mg/dL (2.5-4.9)
[2023-04-26] MEDS: ENOXAPARIN NA (PORCINE) 40 MG/0.4 ML DISP.SYRIN SQ SCH (09:48)
[2023-04-26] MEDS: LIDOCAINE 5% TOPICAL PATCH TP SCH (09:48)
[2023-04-26] MEDS: LISINOPRIL 20 MG TABLET PO SCH (09:48)
[2023-04-26] MEDS: NICOTINE 14 MG/24 HOURS TOPICAL PATCH TD SCH (09:48)
[2023-04-26] MEDS: BUDESONIDE/FORMETEROL FUMARATE 160/4.5 mcg INHALER IH SCH ×2 (09:54→21:25)
[2023-04-26 10:04] VITALS: RESP 18
[2023-04-26] MEDS: ACETAMINOPHEN 1000 MG/100 ML BAG IVPB PRN (21:05)
[2023-04-26] MEDS: ATORVASTATIN CA 10 MG TABLET (FP) PO SCH (21:26)
[2023-04-26] MEDS: MONTELUKAST NA 10 MG TABLET PO SCH (21:26)
[2023-04-26 23:00] VITALS: BMI 34.9
[2023-04-27] MEDS ORDERED: MELATONIN 5 MG TABLETS PO ONE (01:55)
[2023-04-27] MEDS: LIDOCAINE PATCH REMOVAL MC SCH (02:47)
[2023-04-27] MEDS: methaDONE 40 MG, methaDONE 20 MG PO SCH (06:28)
[2023-04-27] MEDS: NICOTINE 14 MG/24 HOURS TOPICAL PATCH TD SCH (09:25)
[2023-04-27] MEDS: LISINOPRIL 20 MG TABLET PO SCH (09:25)
[2023-04-27] MEDS: LIDOCAINE 5% TOPICAL PATCH TP SCH (09:25)
[2023-04-27] MEDS: BUDESONIDE/FORMETEROL FUMARATE 160/4.5 mcg INHALER IH SCH (09:26)
[2023-04-27] MEDS: ENOXAPARIN NA (PORCINE) 40 MG/0.4 ML DISP.SYRIN SQ SCH ×2 (09:26→09:35)
[2023-04-27 19:14] VITALS: BP 124/88; PULSE 69; TEMP 98.6
== END 2023-04-27 22:01 | disposition home health service (06) | DRG 199 ==
LOC: JER 18:28 → JERBED 19:53 → J4W 04-24 10:02
PROVIDERS: ADMIT Internal Medicine; ATTEND Internal Medicine
DX: I16.0 Hypertensive urgency (principal); E87.3 Alkalosis; I50.9 Heart failure, unspecified; F11.20 Opioid dependence, uncomplicated; E11.9 Type 2 diabetes mellitus without complications; F17.210 Nicotine dependence, cigarettes, uncomplicated; F19.10 Other psychoactive substance abuse, uncomplicated; F31.9 Bipolar disorder, unspecified; I47.1 Supraventricular tachycardia; M15.9 Polyosteoarthritis, unspecified; T40.5X5A Adverse effect of cocaine, initial encounter; I11.0 Hypertensive heart disease with heart failure; Y92.89 Other specified places as the place of occurrence of the external cause; E66.9 Obesity, unspecified; Z68.34 Body mass index [BMI] 34.0-34.9, adult
CPT/HCPCS: 0241U-QW; 36415; 36600; 70450-TC; 71045-TC-FY; 72170-TC-FY; 73552-TC-LT-FY; 73552-TC-RT-FY; 73700-TC-RT; 76856-TC; 80048; 80053; 80307; 81003; 82550; 82553; 82803; 82962; 83036; 83605; 83735; 83880; 84100; 84443; 84484; 84703; 85025; 85379; 85610; 85730; 86850; 86900; 86901; 93005; 93010; 93306-TC; 93970-TC; 97116-GP; 97162-GP; 99291